=== PATIENT | male | born 1980 | race Caucasian/White ===

== ENCOUNTER 2025-09-09 09:15 | Observation (INO) | payer BC, SELFPAY ==
--- OUTSIDE RECORDS SUMMARY | 2025-09-08 11:20 | XMS_ITS | Encounter Summary ---
Author Organization [facility] Healthcare Address [address] [place] [id number] Care Team Providers Care Manager Lsw Name Role Phone No, Physician Primary Care Provider [phone] Encounter Details Date Type Department Care Team (Latest Contact Info) Description 09/08/2025 11:20 AM WINDOW MACHINE OPERATOR - 09/08/2025 11:59 PM WINDOW MACHINE OPERATOR Hospital Encounter [facility] [address] [place] [id number] Calculus of kidney Discharge Disposition: Discharge to home or self care Social History Tobacco Use Types Packs/Day Years Used Date Smoking Tobacco: Never Assessed Sex and Gender Information Value Date Recorded Sex Assigned at Not on file Legal Sex Male 12:37 PM WINDOW MACHINE OPERATOR Gender Identity Not on file Sexual Orientation Not on file documented as of this encounter Discharge Disposition Disposition Code Departure Means Destination Discharge to home or self care documented in this encounter Plan of Treatment Pending Results Name Type Priority Associated Diagnoses Date /Time XR Kub Imaging Schedule Routine , Read Routine (OP Routine) Calculus of kidney 09/08/2025 11:34 AM WINDOW MACHINE OPERATOR Scheduled Orders Name Type Priority Associated Diagnoses Orde r Schedule XR Kub Imaging Schedule Routine , Read Routine (OP Routine) Calculus of kidney Once for 1 Occurrences starting 09/08/2025 until 09/08/2025 documented as of this encounter Visit Diagnoses Diagnosis Calculus of kidney documented in this encounter Care Teams Manager Lsw Relationship Specialty Start Date End Date No, Physician PCP - General 11/14/24 documented as of this encounter
--- OUTSIDE RECORDS SUMMARY | 2025-09-08 11:20 | XMS_ITS | Encounter Summary ---
Author Organization [facility] Healthcare Address [address] [place] [address] Care Team Providers Care Ripening Room Attendant Name Role Phone No, Physician Primary Care Provider [phone] Encounter Details Date Type Department Care Team (Latest Contact Info) Description 09/08/2025 11:20 AM REPTILE KEEPER - 09/08/2025 11:59 PM REPTILE KEEPER Hospital Encounter [facility] [address] [place] [address] Calculus of kidney Discharge Disposition: Discharge to home or self care Social History Tobacco Use Types Packs/Day Years Used Date Smoking Tobacco: Never Assessed Sex and Gender Information Value Date Recorded Sex Assigned at Not on file Legal Sex Male 12:37 PM REPTILE KEEPER Gender Identity Not on file Sexual Orientation Not on file documented as of this encounter Discharge Disposition Disposition Code Departure Means Destination Discharge to home or self care documented in this encounter Plan of Treatment Pending Results Name Type Priority Associated Diagnoses Date /Time XR Kub Imaging Schedule Routine , Read Routine (OP Routine) Calculus of kidney 09/08/2025 11:34 AM REPTILE KEEPER Scheduled Orders Name Type Priority Associated Diagnoses Orde r Schedule XR Kub Imaging Schedule Routine , Read Routine (OP Routine) Calculus of kidney Once for 1 Occurrences starting 09/08/2025 until 09/08/2025 documented as of this encounter Visit Diagnoses Diagnosis Calculus of kidney documented in this encounter Care Teams Ripening Room Attendant Relationship Specialty Start Date End Date No, Physician PCP - General 11/14/24 documented as of this encounter
[2025-09-09] VITALS (18 sets, daily range): BP systolic 104–149; BP diastolic 43–90; PULSE 52–72; RESP 12–20; TEMP 36.5–37.4; O2SAT 96–100; BMI 27.1
--- NOTE | ~2025-09-09 | XR_ITS ---
EXAMINATION: XR retrograde pyelo w/stent RT DATE: 09/09/2025 16:26 INDICATION: Right ureteral stone TECHNIQUE: 5 fluoroscopic images of the abdomen and pelvis were obtained procedure performed by Dr. Alvarado. Radiologist was not present for the imaging or procedure. The amount of fluoroscopy time used during this procedure was 1.2 minutes. The dose area product was 0.930 mGym^2. COMPARISON: CT dated 09/09/2025 FINDINGS: Images demonstrate retrograde cannulation of the right ureter with contrast injection opacifying the mildly dilated right renal collecting system. Subsequent images demonstrate placement of a right internal ureteral stent with loops formed in the bladder and right renal pelvis. The stone previously seen in the distal right ureter is not visualized and may have been extracted. IMPRESSION: 1. Fluoroscopy utilized during placement of a right intrarenal stent which is in expected position. Correlate with procedure note for further detail. Reviewed, dictated and finalized at location A. E GRINDER IMPRESSION: 1. Fluoroscopy utilized during placement of a right intrarenal stent which is i n expected position. Correlate with procedure note for further detail.
--- NOTE | ~2025-09-09 | CT_ITS ---
EXAM/PROCEDURE: CT abdomen pelvis wo con HISTORY: recent kidney stone diagnosis, R back pain COMPARISON: None available. TECHNIQUE: Stone protocol CT FINDINGS: Moderately severe right-sided hydroureteronephrosis present with 4.5 mm stone in the expected location of the distal right ureter just above the UVJ, image 164 series 3. No other kidney stones or left ureteral stones. 2 mm stone present overlying the anterior bladder wall image 165 series 3, and image 79 of the sagittal series may represent a tiny bladder stone. Tiny urachal remnant also present. Small amount of free fluid. The bowel gas pattern is nonobstructive with no free air or pneumatosis. Moderate to large amount of stool extends to the cecum. No grossly inflamed appendix seen. No AAA. No gross CT evidence of acute cholecystitis or pancreatitis. Para graft lung bases clear. Heart size normal. The bones appear intact. No bulky mesenteric or retroperitoneal lymphadenopathy or masses. Mildly enlarged prostate. IMPRESSION: Directed noncontrast exam demonstrating moderately severe right- sided hydroureteronephrosis with probable 4.5 mm distal right ureteral stone. Small urachal remnant, and possible tiny anterior bladder stone also noted as detailed above. Reviewed, dictated and finalized at location A. H HEAT TREAT OPERATOR IMPRESSION: Directed noncontrast exam demonstrating moderately severe right-marco antonio ed hydroureteronephrosis with probable 4.5 mm distal right ureteral stone. Smal l urachal remnant, and possible tiny anterior bladder stone also noted as detai led above.
--- OUTSIDE RECORDS SUMMARY | 2025-09-09 10:10 | XMS_ITS | Clinical Summary ---
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 Encounter for routine adult health examination without abnormal findings 04/03/2023 Assessment & Plan (04/03/2024 10:26 AM CDT): Presenting for physical Feeling at baseline overall No acute concerns on exam Encouraged healthy lifestyle Immunizations discussed and recommended Screening tests reviewed/ordered Assessment & Plan (04/03/2023 9:58 AM CDT): New patient Presenting for physical Feeling at baseline overall No acute concerns on exam Encouraged healthy lifestyle Immunizations updated Screening tests reviewed/ordered Resolved Problems Problem Noted Date Diagnosed Date Resolved Date Acute neck pain 12/13/2023 04/03/2024 Assessment & Plan (12/13/2023 4:28 PM CDT): Without traumatic incident, suspect due to muscle strain; 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 Good ROM over video; needs physical visit for exam if persisting Recommend avoid strenuous activity, regular stretching Continue OTCs, will prescribe muscle relaxer to use as needed Severe acute respiratory syn drome coronavirus 2 (SARS-CoV-2) test result unknown 04/03/202304/03 Myalgia 04/03/2023 04/03/2024 Assessment & Plan (04/03/2023 10:00 AM CDT): Occasional flareups in his hands and muscle groups after working out, sometimes requiring NSAIDs -Could be attributed to age-related changes/chronic overuse -Recommend regular stretching at this time; ergonomic devices -Additional work-up if persisting/worsening Encounters Date Type Department Care Team Description 08/25/2025 External Device Data ST[facility] ABSTRACTION Provider, Abstract 07/28/2025 External Device Data STL ABSTRACTION Provider, Abstract 07/22/2025 External Device Data ST[facility] ABSTRACTION Provider, Abstract 07/21/2025 External Device Data ST[facility] ABSTRACTION Provider, Abstract 07/14/2025 External Device Data ST[facility] ABSTRACTION Provider, Abstract from Last 3 Months Immunizations Immunization Administration Dates Next Due ([id number])(ALL AGES) VACCINI A (SMALLPOX) VACCINE, PERCUTANEOUS 04/13/2009 (ADACEL/BOOSTRIX)(10 YR UP) TDAP VACCINE, 0.5ML, IM 04/03/2023 (BIOTHRAX)(18-65 YRS) ANTHRA X VACCINE, PRE-EXPOSURE PROPHYLAXIS, POST EXPOSURE PROPHYLAXIS, 0.5 ML IM 06/04/2009,04/13/2009 (IPOL)(6 WKS AND UP) POLIOVI LEONEL VACCINE, INACTIVATED (IPV), 3 DOSE, SUBCUT OR IM 03/22/2007 (MENACTRA)(9 MO-55 YR) MENIN GOCOCCAL POLYSACCHARIDE A, C, Y AND W-135 DIPTHERIA TOXOID CONJUGATE VACCINE, (PF), 0.5ML, IM 03/22/2007 (TDVAX)(7 YRS UP) TETANUS AN D DIPHTHERIA TOXOIDS, ADSORBED (2 LF OF TETANUS TOXOID AND 2 LF OF DIPHTHERIA TOXOID), 0.5ML (PF), IM 03/22/2007 (TWINRIX)(18 YRS UP) HEPATIT IS A AND HEPATITIS B VACCINE ADULT, 1 ML, IM 11/14/2007,04/27/2007,03/27/2007 (TYPHIM )(2 YRS UP) TYPHOI D CAPSULAR POLYSACCHARIDE VACCINE, 0.5 ML, IM 04/13/2009 Influenza A (H1N1) Vaccine IM 08/03/2009 Influenza Vaccine Nasal 07/22/2010,07/24/2008, Influenza Vaccine Quad Split 3+ Yrs Im 6 Influenza Virus Vaccine, Spl it Virus (Incl. Purified Surface antigen)-retired CODE 06/03/2009 Family History Medical History Relation Name Comments Thyroid Disease Father Diabetes Mother Heart Failure Mother Stroke Mother Relation Name Status Comments Father Mother Social History Tobacco Use Types Packs/Day Years Used Date Smoking Tobacco: Never Passive Smoke Exposure: Never Tobacco Cessation:Counseling Given: No Alcohol Use Standard Drinks/Week Comments Yes 0 (1 standard drink = 0.6 oz pur e alcohol) socially Sex and Gender Information Value Date Recorded Sex Assigned at Not on file Legal Sex Male 5:19 PM HAIR DRYER Gender Identity Not on file Sexual Orientation Not on file Last Filed Vital Signs Vital Sign Reading Time Taken Comments Blood Pressure 106/78 04/03/2024 9:52 AM CDT Pulse 47 04/03/2024 9:52 AM CDT Temperature 36.7 C (98 F) 01/30/2018 9:07 AM CDT Respiratory Rate 16 04/03/2024 9:52 AM CDT Oxygen Saturation 99% 04/03/2024 9:52 AM CDT Inhaled Oxygen Concentration - - Weight 83 kg (183 lb) 04/03/2024 9:52 AM CDT Height 177.8 cm (5' 10) 04/03/2024 9:52 AM CDT Body Mass Index 26.26 04/03/2024 9:52 AM CDT Plan of Treatment Health Maintenance Due Date Last Done Comments INFLUENZA VACCINE (#1) 2025 6, 07/22/2010, 07/24/2008, Additional history exists DTAP/TDAP/TD VACCINES (2 - T d or Tdap) 04/03/2033 04/03/2023, 03/22/2007 HEPATITIS B VACCINES Completed 11/14/2007, 04/27/2007, 03/27/2007 HPV VACCINES (No Doses Required) Completed Insurance [facility] [employer] ACCESS CHOICE Care Teams Pigment Making Supervisor Relationship Specialty Start Date End Date Alonzo Everett MD PCP - General Family Practice 04/03/23
--- OUTSIDE RECORDS SUMMARY | 2025-09-09 10:10 | XMS_ITS | Clinical Summary ---
Author Organization [facility] Address [address] [facility] [place] [address] Care Team Providers Care International Account Manager Name Role Phone Unavailable Primary Care Provider Unavailabl e Social History Tobacco Use Types Packs/Day Years Used Date Smoking Tobacco: Never Assessed Sex and Gender Information Value Date Recorded Sex Assigned at Not on file Legal Sex Male 12:20 PM EDT Gender Identity Not on file Sexual Orientation Not on file Plan of Treatment Not on file Medical Devices Not on file Insurance [facility]
--- OUTSIDE RECORDS SUMMARY | 2025-09-09 10:10 | XMS_ITS | Clinical Summary ---
Author Organization [facility] Address [address] [place] [address] Phone Care Team Providers Care Software Development Intern Name Role Phone Provider, None Primary Care Provider Unavailabl e Allergies No known active allergies Medications No known medications Active Problems No known active problems Social History Tobacco Use Types Packs/Day Years Used Date Smoking Tobacco: Never Smokeless Tobacco: Never Sex and Gender Information Value Date Recorded Sex Assigned at Not on file Legal Sex Male 10:05 AM CDT Gender Identity Not on file Sexual Orientation Not on file Last Filed Vital Signs Vital Sign Reading Time Taken Comments Blood Pressure 120/80 05/28/2021 11:40 AM CDT Pulse 62 05/28/2021 11:40 AM CDT Temperature 36.6 C (97.9 F) 05/28/2021 11:40 AM CDT Respiratory Rate 20 05/28/2021 11:40 AM CDT Oxygen Saturation 97% 05/28/2021 11:40 AM CDT Inhaled Oxygen Concentration - - Weight 81.6 kg (180 lb) 05/28/2021 11:40 AM CDT Height 177.8 cm (5' 10) 05/28/2021 11:40 AM CDT Body Mass Index 25.83 05/28/2021 11:40 AM CDT Plan of Treatment Health Maintenance Due Date Last Done Comments Hepatitis C Virus (HCV) Screening 1982 TdaP Immunization 1982 Varicella Immunization (1 of 2 - 13+ 2-dose series) 1995 Hepatitis B Immunization (1 of 3 - 19+ 3-dose series) 2001 Influenza Immunization (#1) 2025 06/22/2016 SARS-COV-2 Immunization (4 - 2025-26 season) 2025 09/12/2021, 12/13/2020, 11/10/2020 Respiratory Syncytial Virus (RSV) Immunization (Adult) (1 - 1-dose 75+ series) 2057 Human Papillomavirus (HPV) Immunization (No Doses Required) Completed Meningococcal Immunization (ACWY) Aged Out No longer eligible b ased on patient's age to complete this topic Pneumococcal Immunization Combined Aged Out No longer eligible b ased on patient's age to complete this topic Rotavirus Immunization Aged Out No lo nger eligible based on patient's age to complete this topic Insurance [facility] Care Teams Software Development Intern Relationship Specialty Start Date End Date Provider, None DIPAK PCP - General 05/28/21
--- OUTSIDE RECORDS SUMMARY | 2025-09-09 10:10 | XMS_ITS | Clinical Summary ---
Author Organization [facility] Address [address] [place] [address] Care Team Providers Care Utility Appraiser Name Role Phone No, Physician Primary Care Provider [phone] Allergies No known active allergies Medications No known medications Active Problems No known active problems Encounters Date Type Department Care Team Description 09/08/2025 11:20 AM TAX CONSULTANT - 09/08/2025 11:59 PM TAX CONSULTANT Hospital Encounter [facility] [address] [place] [address] Calculus of kidney Discharge Disposition: Discharge to home or self care from Last 3 Months Social History Tobacco Use Types Packs/Day Years Used Date Smoking Tobacco: Never Assessed Sex and Gender Information Value Date Recorded Sex Assigned at Not on file Legal Sex Male 12:37 PM TAX CONSULTANT Gender Identity Not on file Sexual Orientation Not on file Last Filed Vital Signs Vital Sign Reading Time Taken Comments Blood Pressure 116/72 11/21/2024 9:51 AM TAX CONSULTANT Pulse 53 11/21/2024 9:51 AM TAX CONSULTANT Temperature - - Respiratory Rate - - Oxygen Saturation - - Inhaled Oxygen Concentration - - Weight 83.9 kg (185 lb) 11/21/2024 9:51 AM TAX CONSULTANT Height 179.1 cm (5' 10.5) 11/21/2024 9:51 AM CS T Body Mass Index 26.17 11/21/2024 9:51 AM TAX CONSULTANT Plan of Treatment Health Maintenance Due Date Last Done Comments Depression Screening 1982 Hepatitis C Screening 1982 Varicella Vaccines (1 of 2 - 13+ 2-dose series) 1995 Regular Well Visit/Exam 18-64 2000 HPV Vaccines (1 - 3-dose SCDM series) 2009 Influenza Vaccine (#1) 2025 2, 09/12/2021, 06/22/2016, Additional history exists DTaP/Tdap/Td Vaccine (7 - Td or Tdap) 04/03/2033 04/03/2023, 03/22/2007, 03/19/1997, Additional history exists Hepatitis B Screening Completed 11/14/2007 , 04/27/2007, 03/27/2007 Pneumococcal vaccine <65 Aged Out No longer eligible based on patient's age to complete this topic Insurance [employer] [facility] Care Teams Utility Appraiser Relationship Specialty Start Date End Date No, Physician PCP - General 11/14/24
--- OUTSIDE RECORDS SUMMARY | 2025-09-09 10:10 | XMS_ITS | Clinical Summary ---
Author Organization [facility] Address [address] [place] [address] Care Team Providers Care Clip Loading Machine Feeder Name Role Phone Unknown, Unknown Primary Care Provider Unavailab le Source Comments [facility],non-owned Affiliates and Associated Physician Practices is amultiple site organization consisting of ambulatory clinics and hospital sitesin [place], [place], [place] and [place]. This disclosure is being madepursuant to the Care Everywhere program and may not contain all information available regarding this patient. Last updated 18.[email or web address] [facility] Allergies No known active allergies Medications * Be aware that medications may not be up to date on this document. Alwaysverify current medications with the patient. oxyCODONE, immediate release, (Roxicodone) 5 MG tabletIndicatio ns:Right flank pain,Nephrolith iasis Take 1 (one) tablet by mouth every 4 hours as needed 20 tablet 09/04/2025 Active tamsulosin (Flomax) 0.4 MG capsule Take 1 (one) capsule by mouth once daily At the same time every day after a meal. 20 capsule 09/05/2025 Active ondansetron, disintegrating, (Zofran ODT) 4 MG tablet Take 1 (one) tablet by mouth every 6 hours as needed for nausea/vomiti ng Allow tablet to dissolve on the tongue 20 tablet 09/04/2025 Active Active Problems Problem Noted Date Diagnosed Date Nephrolithiasis 09/03/2025 Right flank pain 09/03/2025 Encounters Date Type Department Care Team Description 09/03/2025 10:33 AM SPECIAL TAX AUDITOR - 09/04/2025 1:36 PM SPECIAL TAX AUDITOR Hospital Encounter [facility] SURG[facility]BARIATRIC [address] [place] [address] Rashida Tai MD Fatima, Noor E, MD Arukala, Venkat Dirish, MD Hospitalist Discharge Disposition: Home or Self Care 09/03/2025 Travel from Last 3 Months Social History Tobacco Use Types Packs/Day Years Used Date Smoking Tobacco: Never Assessed Hunger Vital Sign Answer Date Recorded Within the past 12 months, y ou worried that your food would run out before you got the money to buy more. Never true 09/04/20 25 Within the past 12 months, t he food you bought just didn't last and you didn't have money to get more. Never true 09/04/2025 Sex and Gender Information Value Date Recorded Sex Assigned at Not on file Legal Sex Male 10:25 AM SPECIAL TAX AUDITOR Gender Identity Not on file Sexual Orientation Not on file Last Filed Vital Signs Vital Sign Reading Time Taken Comments Blood Pressure 120/70 09/04/2025 7:24 AM SPECIAL TAX AUDITOR Pulse 58 09/04/2025 7:24 AM SPECIAL TAX AUDITOR Temperature 36.7 C (98 F) 09/04/2025 7:24 AM SPECIAL TAX AUDITOR Respiratory Rate 19 09/04/2025 7:24 AM SPECIAL TAX AUDITOR Oxygen Saturation 98% 09/04/2025 7:24 AM SPECIAL TAX AUDITOR Inhaled Oxygen Concentration - - Weight 84 kg (185 lb 1.6 oz) 09/04/2025 12:05 AM SPECIAL TAX AUDITOR Height 177.8 cm (5' 10) 09/03/2025 6:44 PM SPECIAL TAX AUDITOR Body Mass Index 26.56 09/03/2025 6:44 PM SPECIAL TAX AUDITOR Plan of Treatment Health Maintenance Due Date Last Done Comments LIPID TESTING 1982 HIV SCREENING 1997 HEPATITIS C SCREENING 04/10/2000 DTAP/TDAP/TD VACCINES (1 - Tdap) 2001 HEPATITIS B VACCINE (1 of 3 - 19+ 3-dose series) 2001 HPV VACCINE (1 - 3-dose SCDM series) 2009 DEPRESSION SCREENING 09/24/2024 COVID-19 VACCINE (1 - 2024-2 6 season) 2025 INFLUENZA VACCINE (#1) 2025 6, 06/03/2009 ZOSTER VACCINE (1 of 2) 2032 HIB VACCINE Aged Out No longer eligi ble based on patient's age to complete this topic MENINGOCOCCAL (Group B) VACCINE SHARED DECISION-MAKING Aged Out No longer eligible based on patient's age to complete this topic MENINGOCOCCAL GROUPS A/C/Y/W VACCINE Aged Out No longer eligible b ased on patient's age to complete this topic PNEUMOCOCCAL VACCINE Aged Out No long er eligible based on patient's age to complete this topic Procedures Procedure Name Priority Date/Time Associated Diagnosis Comments PHOSPHORUS BLOOD Routine 09/04/2025 3:15 AM SPECIAL TAX AUDITOR Right flank pain Nephrolithiasis MAGNESIUM BLOOD Routine 09/04/2025 3:15 AM SPECIAL TAX AUDITOR Right flank pain Nephrolithiasis COMPREHENSIVE METABOLIC PANEL Routine 09/04/2025 3:15 AM SPECIAL TAX AUDITOR Right flank pain Nephrolithiasis CBC W/O DIFFERENTIAL Routine 09/04/2025 3:15 AM SPECIAL TAX AUDITOR Right flank pain Nephrolithiasis URINALYSIS REFLEX MICROSCOPIC REFLEX CULTURE STAT 09/03/2025 11:[address] [address] RENAL STONE STAT 09/03/2025 11:11 AM SPECIAL TAX AUDITOR Right flank pain LIPASE BLOOD STAT 09/03/2025 11:08 AM SPECIAL TAX AUDITOR COMPREHENSIVE METABOLIC PANEL STAT 09/03/2025 11:08 AM SPECIAL TAX AUDITOR CBC W AUTO DIFFERENTIAL STAT 09/03/2025 11:08 AM SPECIAL TAX AUDITOR from Last 3 Months Results * (ABNORMAL) CBC W/O DIFFERENTIAL (09/04/2025 3:15 AM SPECIAL TAX AUDITOR) WBC 12.4(H) 4.0 - 10.7 x10E9/L 09/04/2025 3:24 AM SPECIAL TAX AUDITOR [facility] RBC Count 4.53 4.30 - 5.80 x10E12/L 09/04/2025 3:24 AM SPECIAL TAX AUDITOR [facility] Hemoglobin 13.5 13.3 - 17.5 g/dL 09/04/2025 3:24 AM SPECIAL TAX AUDITOR [facility] Hematocrit 39.3 38.7 - 51.1 % 09/04/2025 3:24 AM [facility] MCV 86.8 80.0 - 98.0 fL 09/04/2025 3:24 AM [facility] MCH 29.8 26.7 - 33.6 pg 09/04/2025 3:24 AM [facility] MCHC 34.4 31.7 - 36.3 g/dL 09/04/2025 3:24 AM [facility] RDW-CV 12.1 11.3 - 14.8 % 09/04/2025 3:24 AM [facility] Platelet Count 199 150 - 420 x10E9/L 09/04/2025 3:24 AM [facility] MPV 10.4 7.8 - 11.4 fL 09/04/2025 3:24 AM [facility] Blood BLOOD SPECIMEN / Unknown Venipuncture / Unknown 09/04/2025 3:15 AM SPECIAL TAX AUDITOR 09/04/2025 3:21 AM [facility] us Raza Sosa MD LAB - HEMATOLOGY ORDERABLES Fin al Result [facility] [address] [place] [address] * (ABNORMAL) COMPREHENSIVE METABOLIC PANEL (09/04/2025 3:15 AM SPECIAL TAX AUDITOR) Only the most recent of2 resultswithin the time period is included. Glucose 126(H) 70 - 99 mg/dL 09/04/2025 3:36 AM [facility] Sodium 136 136 - 145 mmol/L 09/04/2025 3:36 AM [facility] Potassium 3.9 3.5 - 5.1 mmol/L 09/04/2025 3:36 AM [facility] Chloride 103 98 - 107 mmol/L 09/04/2025 3:36 AM [facility] CO2 23 22 - 29 mmol/L 09/04/2025 3:36 AM [facility] Calcium 9.2 8.4 - 10.4 mg/dL 09/04/2025 3:36 AM [facility] Anion Gap 10 6 - 16 mmol/L 09/04/2025 3:36 AM [facility] BUN 24(H) 5.3 - 18.7 mg/dL 09/04/2025 3:36 AM SPECIAL TAX AUDITOR [facility] Creatinine 1.73(H) 0.60 - 1.30 mg/dL 09/04/2025 3:36 AM SPECIAL TAX AUDITOR [facility] Alkaline Phosphatase 52 40 - 150 U/L 09/04/2025 3:36 AM SPECIAL TAX AUDITOR [facility] ALT 24 6 - 57 U/L 09/04/2025 3:36 AM SPECIAL TAX AUDITOR [facility] AST 27 10 - 48 U/L 09/04/2025 3:36 AM [facility] Protein Total 6.2(L) 6.4 - 8.3 gm/dL 09/04/2025 3:36 AM [facility] Albumin 3.9 3.1 - 4.5 gm/dL 09/04/2025 3:36 AM [facility] Bilirubin Total 0.8 0.2 - 1.2 mg/dL 09/04/2025 3:36 AM [facility] eGFR by CKD-EPI 50(L) >=90 mL/min/1.7 3 m2 09/04/2025 3:36 AM [facility] Comment:Estimated Glomerular Filtration Rate (eGFR) calculated using the CKD-EPI Creatinine Equation (2020), per the National Kidney Foundation and [place] [employer]ph[employer] recommendations. Blood BLOOD SPECIMEN / Unknown Venipuncture / Unknown 09/04/2025 3:15 AM SPECIAL TAX AUDITOR 09/04/2025 3:21 AM [facility] Raza Sosa MD LAB - CHEMISTRY ORDERABLES Susan l Result [facility] [address] [place] [address] * (ABNORMAL) PHOSPHORUS BLOOD (09/04/2025 3:15 AM SPECIAL TAX AUDITOR) Phosphorus 4.9(H) 2.5 - 4.5 mg/dL 09/04/2025 3:36 AM [facility] Blood BLOOD SPECIMEN / Unknown Venipuncture / Unknown 09/04/2025 3:15 AM SPECIAL TAX AUDITOR 09/04/2025 3:21 AM SPECIAL TAX AUDITOR us Raza Sosa MD LAB - CHEMISTRY ORDERABLES Susan l Result Performing Organization Address City/[facility]/ZIP Co de Phone Number [facility] [id number] [place] [phone] * MAGNESIUM BLOOD (09/04/2025 3:15 AM SPECIAL TAX AUDITOR) Magnesium 2.0 1.6 - 2.6 mg/dL 09/04/2025 3:36 AM SPECIAL TAX AUDITOR [facility] Blood BLOOD SPECIMEN / Unknown Venipuncture / Unknown 09/04/2025 3:15 AM SPECIAL TAX AUDITOR 09/04/2025 3:21 AM SPECIAL TAX AUDITOR us Raza Sosa MD LAB - CHEMISTRY ORDERABLES Susan l Result Performing Organization Address [facility] Co de Phone Number [facility] [address] [place] [phone] * (ABNORMAL) URINALYSIS REFLEX MICROSCOPIC REFLEX CULTURE (09/03/2025 11:54 AM SPECIAL TAX AUDITOR) Color UA Yellow Yellow, Straw 09/03/2025 12:21 PM SPECIAL TAX AUDITOR [facility] Clarity UA Clear Clear 09/03/2025 12:21 PM SPECIAL TAX AUDITOR [facility] Glucose UA Normal Normal 09/03/2025 12:21 PM SPECIAL TAX AUDITOR [facility] Bilirubin UA Negative Negative 09/03/2025 12:21 PM SPECIAL TAX AUDITOR [facility] Ketone UA Trace(A) Negative 09/03/2025 12:21 PM SPECIAL TAX AUDITOR [facility] Specific [place] UA 1.028 1.005 - 1.030 09/03/2025 12:21 PM SPECIAL TAX AUDITOR [facility] Blood UA 3+(A) Negative 09/03/2025 12:21 PM SPECIAL TAX AUDITOR [facility] pH UA 7.0 5.0 - 8.0 09/03/2025 12:21 PM SPECIAL TAX AUDITOR [facility] Protein UA Trace(A) Negative 09/03/2025 12:21 PM SPECIAL TAX AUDITOR [facility] Urobilinogen UA Normal Normal mg/dL 09/03/2025 12:21 PM SPECIAL TAX AUDITOR [facility] Nitrite UA Negative Negative 09/03/2025 12:21 PM SPECIAL TAX AUDITOR [facility] Leukocyte Esterase UA Negative Negative 09/03/2025 12:21 PM SPECIAL TAX AUDITOR [facility] RBC UA 21-50(A) 0 - 5 # /hpf 09/03/2025 12:21 PM SPECIAL TAX AUDITOR [facility] WBC UA None Seen 0 - 5 # /hpf 09/03/2025 12:21 PM SPECIAL TAX AUDITOR [facility] Bacteria UA None Seen None Seen 09/03/2025 12:21 PM SPECIAL TAX AUDITOR [facility] Squamous Epithelial Cells 0-2 0 - 5 /hpf 09/03/2025 12:21 PM SPECIAL TAX AUDITOR [facility] Mucus UA 1+ /LPF 09/03/2025 12:21 PM SPECIAL TAX AUDITOR [facility] Reflex Status Culture not indicated 09/03/2025 12:21 PM SPECIAL TAX AUDITOR [facility] Urine URINE SPECIMEN OBTAINED BY CLEAN CATCH PROCEDURE / Unknown Collection / Unknown 09/03/2025 11:54 AM SPECIAL TAX AUDITOR 09/03/2025 12:01 PM SPECIAL TAX AUDITOR Rashida Murry PA-C LAB - URINALYSIS ORDERABLES F inal Result [facility] [address] [place] [address] * CT RENAL STONE (09/03/2025 11:11 AM SPECIAL TAX AUDITOR) Anatomical Region Laterality Modality Abdomen Computed Tomogra phy 09/03/2025 11:2 0 AM SPECIAL TAX AUDITOR Impressions 09/03/2025 11:27 AM SPECIAL TAX AUDITOR IMPRESSION: Obstructing 4 mm proximal right ureter calculus with moderate right hydronephrosis. > Interpreting Provider: Deshaun Guzman MD on 09/03/2025 11:27 AM Narrative 09/03/2025 11:27 AM SPECIAL TAX AUDITOR PROCEDURE: CT RENAL STONE DATE/TIME OF EXAM: 09/03/2025 11:12 AM CLINICAL INFORMATION: None relevant/not provided if blank. Indication: R10.A1: Right flank pain Additional History: Nausea COMPARISON: None. TECHNIQUE: CT of the abdomen and pelvis was performed without oral or intravenous contrast utilizing the renal stone protocol. Lack of oral and intravenous contrast precludes detailed evaluation of the solid organs and enteric system. CT dose reduction technique was used, including Automated Exposure Control. FINDINGS: Lung bases are clear. Unremarkable liver, gallbladder, pancreas, spleen, and adrenal glands. There is a 4 mm calculus within the proximal right ureter at the level of the L3 vertebral body. There is moderate right hydronephrosis. Unremarkable left kidney. Small calcification likely within the anterior wall the bladder. Mildly enlarged prostate. Unremarkable bowel. No findings of acute appendicitis. No pneumoperitoneum or ascites. No abdominal aortic aneurysm. No bulky lymphadenopathy. No acute osseous finding. Procedure Note Deshaun Guzman MD - 09/03/2025 PROCEDURE: CT RENAL STONE DATE/TIME OF EXAM: 09/03/2025 11:12 AM CLINICAL INFORMATION: None relevant/not provided if blank. Indication: R10.A1: Right flank pain Additional History: Nausea COMPARISON: None. TECHNIQUE: CT of the abdomen and pelvis was performed without oral or intravenous contrast utilizing the renal stone protocol. Lack of oral andintravenous contrast precludes detailed evaluation of the solid organs and enteric system. CT dose reduction technique was used, including Automated ExposureControl. FINDINGS: Lung bases are clear. Unremarkable liver, gallbladder, pancreas, spleen, and adrenal glands. There is a 4 mm calculus within the proximal right ureter at the levelof the L3 vertebral body. There is moderate right hydronephrosis.Unremarkable left kidney. Small calcification likely within the anterior wall the bladder. Mildly enlarged prostate. Unremarkable bowel. No findings of acute appendicitis. Nopneumoperitoneum or ascites. No abdominal aortic aneurysm. No bulky lymphadenopathy. No acute osseous finding. IMPRESSION: Obstructing 4 mm proximal right ureter calculus with moderate right hydronephrosis. > Interpreting Provider: Deshaun Guzman MD on 09/03/2025 11:27 AM Rashida [facility] PA-C CT ORDERABLES Final Result * (ABNORMAL) CBC W AUTO DIFFERENTIAL (09/03/2025 11:08 AM SPECIAL TAX AUDITOR) WBC 10.7 4.0 - 10.7 x10E9/L 09/03/2025 11:35 AM SPECIAL TAX AUDITOR [facility] RBC Count 5.07 4.30 - 5.80 x10E12/L 09/03/2025 11:35 AM SPECIAL TAX AUDITOR [facility] Hemoglobin 15.0 13.3 - 17.5 g/dL 09/03/2025 11:35 AM SPECIAL TAX AUDITOR [facility] Hematocrit 45.2 38.7 - 51.1 % 09/03/2025 11:35 AM SPECIAL TAX AUDITOR [facility] MCV 89.2 80.0 - 98.0 fL 09/03/2025 11:35 AM [facility] MCH 29.6 26.7 - 33.6 pg 09/03/2025 11:35 AM [facility] MCHC 33.2 31.7 - 36.3 g/dL 09/03/2025 11:35 AM [facility] RDW-CV 12.4 11.3 - 14.8 % 09/03/2025 11:35 AM [facility] Platelet Count 259 150 - 420 x10E9/L 09/03/2025 11:35 AM [facility] MPV 10.9 7.8 - 11.4 fL 09/03/2025 11:35 AM [facility] Neutrophil % 71.6 41.0 - 74.0 % 09/03/2025 11:35 AM [facility] Lymphocyte % 19.6 17.0 - 47.0 % 09/03/2025 11:35 AM SPECIAL TAX AUDITOR [facility] Monocyte % 6.3 3.0 - 11.0 % 09/03/2025 11:35 AM SPECIAL TAX AUDITOR [facility] Eosinophil % 1.3 0.0 - 7.0 % 09/03/2025 11:35 AM [facility] Basophil % 0.6 0.0 - 1.6 % 09/03/2025 11:35 AM [facility] Immature Granulocytes % 0.6 0.0 - 1.0 % 09/03/2025 11:35 AM [facility] Neutrophil Absolute 7.66(H) 1.60 - 7.50 x10E9/L 09/03/2025 11:35 AM SPECIAL TAX AUDITOR [facility] Lymphocyte Absolute 2.09 1.00 - 4.40 x10E9/L 09/03/2025 11:35 AM [facility] Monocyte Absolute 0.67 0.15 - 1.00 x10E9/L 09/03/2025 11:35 AM [facility] Eosinophil Absolute 0.14 0.00 - 0.60 x10E9/L 09/03/2025 11:35 AM [facility] Basophil Absolute 0.06 0.00 - 0.13 x10E9/L 09/03/2025 11:35 AM SPECIAL TAX AUDITOR [facility] Blood BLOOD SPECIMEN / Unknown Venipuncture / Unknown 09/03/2025 11:08 AM SPECIAL TAX AUDITOR 09/03/2025 11:26 AM SPECIAL TAX AUDITOR Rashida Groos PA-C LAB - HEMATOLOGY ORDERABLES F inal Result Performing Organization Address [facility] Co de Phone Number [facility] [address] [place] [address] * LIPASE BLOOD (09/03/2025 11:08 AM SPECIAL TAX AUDITOR) Lipase 15 <60 U/L 09/03/2025 11:43 AM SPECIAL TAX AUDITOR [facility] Blood BLOOD SPECIMEN / Unknown Venipuncture / Unknown 09/03/2025 11:08 AM SPECIAL TAX AUDITOR 09/03/2025 11:26 AM SPECIAL TAX AUDITOR Rashida Groos PA-C LAB - CHEMISTRY ORDERABLES Fi nal Result Performing Organization Address [facility] de Phone Number [facility] [address] [place] [address] from Last 3 Months Insurance [facility] Advance Directives * Full Code (Latest Code Status on File) Date Activated Date Inactivated Comments 09/03/2025 5:43 PM 09/04/2025 2:36 PM Care Teams Clip Loading Machine Feeder Relationship Specialty Start Date End Date Unknown, Unknown PCP - General 09/03/25
[2025-09-09 10:14] LABS: Hematocrit 40.7 % (42.0-52.0); Hemoglobin 13.2 g/dL (14.0-18.0); Immature Granulocyte Percent A 0.5 % (0-0.5); Lymphocytes Absolute Auto 1.63 K/mm3 (0.9-3.2); Mean Corpuscular HGB Conc 32.4 g/dl (32-36); Mean Corpuscular Hemoglobin 30.1 pg (26-34); Mean Corpuscular Volume 92.9 fl (80-100); Nucleated Red Blood Cells Absolute Auto 0.000 K/mm3 (0.0-0.012); Nucleated Red Blood Cells Perc 0.0 % (0.0-0.2); Platelet Count Result 180 k/mm3 (150-375); Red Blood Count 4.38 M/mm3 (4.6-6.20); White Blood Count 9.9 K/mm3 (4.5-10.0)
[2025-09-09 10:24] LABS: Add Urine Microscopic? YES; Appearance Urine Clear (Clear); Glucose Urine UA Negative (Negative); Leukocyte Esterase Ur Negative LEU/UL (Negative); Nitrate Urine Negative (Negative); Non Pathogenic Casts 0-2; Specific Grav Ur 1.019 (1.001-1.035)
--- NOTE | 2025-09-09 10:27 | ED_ITS ---
HPI - Back Pain/Injury General Chief Complaint: Back Pain/Injury Stated Complaint: R FLANK/ABD PAIN +KIDNEY STONE Time Seen by Provider: 09/09/25 09:58 History of Present Illness HPI Narrative: Patient is a 45-year-old male who presents to the ER with right flank pain. He reports he started experiencing pain last week and went in to [facility] on , 6 days ago. Patient reports they did a CT scan and he is diagnosed with a 4 mm kidney stone. He reports he was admitted to the hospital and discharged on Sunday. Patient reports he was seen by urologist who told him he would pass the stone, but put him on Flomax. He reports the pain continues to be significant. Patient reports he went to an outpatient urologist yesterday who did a KUB, but they have not received results from that yet. He reports he took Tylenol this morning around 6:30 a.m.. Patient reports he has not taken his oxycodone as it makes him sick. He reports he has been straining his urine but has not passed the stone. At time of examination patient endorses his pain is a 4/10. He denies any other medical history relevant to this ER visit. Related Data Allergies Allergy/AdvReac Type Severity Reaction Status Date / Time No Known Allergies Allergy Verified 09/09/25 09:16 Review of Systems 2 Review of Systems: All systems reviewed & are unremarkable except as noted in HPI and below PMFSH Past Medical History Medical History Kidney stones Exam 2 Narrative: GENERAL: Well appearing, well-nourished, non-toxic, in no acute distress. HEAD: Normocephalic, atraumatic. NECK: Supple. No adenopathy, no masses. RESPIRATORY: Airway patent, respirations nonlabored. Clear to auscultation bilaterally, no rales, rhonchi, wheezing. CARDIOVASCULAR: Regular rate and rhythm without murmurs, rubs, or gallops. Peripheral pulses 2+ and equal bilaterally. ABDOMINAL: Soft, nontender, nondistended, no hepatosplenomegaly. Normoactive BS. MUSCULOSKELETAL: Moves all extremities. Strength/ROM intact without gross deformities. SKIN: Warm, dry, normal color. No rashes. NEURO: A&O X3. Speech clear. Cranial nerves II-XII intact. No ataxic movements. PSYCHIATRIC: Appropriate mood and affect. Normal interaction. Course Vital Signs Vital signs: Vital Signs Temperature 36.6 C 09/09/25 09:25 Pulse Rate 58 L 09/09/25 09:25 Respiratory Rate 18 09/09/25 09:25 Blood Pressure 142/75 H 09/09/25 09:25 Pulse Oximetry 100 09/09/25 09:25 Oxygen Delivery Room Air 09/09/25 09:25 Temperature 36.6 C 09/09/25 09:25 Pulse Rate 52 L 09/09/25 10:12 Respiratory Rate 18 09/09/25 12:12 Blood Pressure 139/78 09/09/25 12:12 Pulse Oximetry 100 09/09/25 10:12 Oxygen Delivery Room Air 09/09/25 09:25 MDM MDM Narrative Medical decision making narrative: Patient is a 45-year-old male who presents to the ER with right flank pain. He reports he started experiencing pain last week and went in to [facility] on , 6 days ago. Patient reports they did a CT scan and he is diagnosed with a 4 mm kidney stone. He reports he was admitted to the hospital and discharged on Sunday. Patient reports he was seen by urologist who told him he would pass the stone, but put him on Flomax. He reports the pain continues to be significant. Patient reports he went to an outpatient urologist yesterday who did a KUB, but they have not received results from that yet. He reports he took Tylenol this morning around 6:30 a.m.. Patient reports he has not taken his oxycodone as it makes him sick. He reports he has been straining his urine but has not passed the stone. At time of examination patient endorses his pain is a 4/10. He denies any other medical history relevant to this ER visit. Labs Ordered: CBC, CMP, UA Imaging Ordered: CT abdomen pelvis Medications Ordered: 1 L normal saline IV bolus, morphine 4 mg IV, morphine 2 mg IV, Zofran 4 mg IV Results: Pt's CT scan indicates Moderately severe right-sided hydroureteronephrosis present with 4.5 mm stone in the expected location of the distal right ureter just above the UVJ, image 164 series 3. No other kidney stones or left ureteral stones. 2 mm stone present overlying the anterior bladder wall image 165 series 3, and image 79 of the sagittal series may represent a tiny bladder stone. Tiny urachal remnant also present. Small amount of free fluid. The bowel gas pattern is nonobstructive with no free air or pneumatosis. Moderate to large amount of stool extends to the cecum. No grossly inflamed appendix seen. No AAA. No gross CT evidence of acute cholecystitis or pancreatitis. Para graft lung bases clear. Heart size normal. The bones appear intact. No bulky mesenteric or retroperitoneal lymphadenopathy or masses. Mildly enlarged prostate. Diagnosis: Kidney stone Consults: Spoke [facility], Dr. Alvarado, who reports he will consult on pt. He can be admitted and will do the procedure tomorrow morning or late this evening. 1250- Spoke with hospitalist, HERMINIO Erwin, who was in agreement with plan for admission. Pt will be admitted to med/surg floor. MDM: Results of imaging and lab work shared with patient and his family. After discussion with Dr. Alvarado, pt was offered discharge home versus admission. Pt and his family are opting for admission to proceed forward with surgery. He was advised to remain NPO and make staff aware if he needs more pain medication. Patient and his family verbalized understanding and are in agreement with plan. Differential Diagnosis Differential Diagnosis: Pyelonephritis, kidney stone, urinary tract infection Lab Data [facility] Lab Attestation statement: I personally reviewed the patient's lab results. 09/09/25 10:09 09/09/25 10:59 Labs: Lab Results 09/09/25 09/09/25 09/09/25 Range/Units 10:09 10:10 10:59 WBC 9.9 (4.5-10.0) K/mm3 RBC 4.38 L (4.6-6.20) M/mm3 Hgb 13.2 L (14.0-18.0) g/dL Hct 40.7 L (42.0-52.0) % MCV 92.9 (80-100) fl MCH 30.1 (26-34) pg MCHC 32.4 (32-36) g/dl RDW 12.1 (11.5-14.5) % Plt Count 180 (150-375) k/mm3 MPV 11.0 H (7.4-10.4) fl Immature Gran % (Auto) 0.5 (0-0.5) % Neut % (Auto) 70.5 (45.5-73.1) % Lymph % (Auto) 16.5 L (18.3-44.2) % Bullock % (Auto) 10.3 H (2.6-8.5) % Eos % (Auto) 1.5 (0-4.4) % Baso % (Auto) 0.7 (0.2-1.2) % Lymph # (Auto) 1.63 (0.9-3.2) K/mm3 Bullock # (Auto) 1.0 H (0.1-0.6) K/mm3 Eos # (Auto) 0.2 (0-0.3) K/mm3 Baso # (Auto) 0.1 (0.0-0.1) K/mm3 Abs Immat Gran (auto) 0.05 H (0.00-0.031) K/mm3 Absolute Neuts (auto) 7.0 H (1.3-6.7) K/mm3 Absolute Nucleated RBC 0.000 (0.0-0.012) K/mm3 Nucleated RBC % 0.0 (0.0-0.2) % Sodium 140 (137-145) mmol/L Potassium 4.4 (3.4-5.0) mmol/L Chloride 105 (98-107) mmol/L Carbon Dioxide 28 (22-30) mmol/L Anion Gap 7 (4-12) mmol/L BUN 14 (9-20) mg/dL Creatinine 1.64 H (0.7-1.3) mg/dL Estim Creat Clear Calc 54 ml/min Estimated GFR 46 L (59 - ) Glucose 81 (65-110) mg/dL Calcium 8.7 (8.4-10.2) mg/dL Total Bilirubin 0.5 (0.2-1.3) mg/dL AST 29 (17-59) U/L ALT 47 (6-50) U/L Alkaline Phosphatase 76 (38-126) U/L Total Protein 6.7 (6.3-8.2) g/dL Albumin 3.9 (3.5-5.1) g/dL Urine Color Yellow (Yellow) Urine Appearance Clear (Clear) Urine pH 7.5 (5.0-9.0) Ur Specific Keiser 1.019 (1.001-1.035) Urine Protein Trace (Negative) mg/dL Urine Glucose (UA) Negative (Negative) mg/dL Urine Ketones Negative (Negative) mg/dL Ur Blood (Man) Negative (Negative) Urine Nitrate Negative (Negative) Urine Bilirubin Negative (Negative) Urine Urobilinogen 1.0 (<2.0) mg/dL Leukocyte Esterase Rfl Negative (Negative) JOSE/UL Urine RBC 0-2 (0-2) /hpf Urine WBC 0-5 (0-3) /hpf Ur Squamous Epith Cells None seen (Few) /hpf Urine Bacteria None seen /hpf Urine Casts 0-2 Imaging Data Attestation: I personally reviewed and interpreted this imaging study as follows: Radiologist's impression: ITS Impressions Abdomen/Pelvis CT 09/09/25 11:18 IMPRESSION: Directed noncontrast exam demonstrating moderately severe right- sided hydroureteronephrosis with probable 4.5 mm distal right ureteral stone. Small urachal remnant, and possible tiny anterior bladder stone also noted as detailed above. Discharge Plan Discharge Clinical Impression: Kidney calculi, Acute flank pain, Hydroureteronephrosis Patient Disposition: Still a Patient Condition: Stable Patient Language: Yi Follow-up/Referrals: PHYSICIAN,BRINELL TESTER [Primary Care Provider, Internal Medicine]
[2025-09-09] MEDS: SODIUM CHLORIDE 0.9% IV 1,000 ML 999 ML IV CONT (10:35)
[2025-09-09] MEDS: ONDANSETRON INJ 4 MG/2 ML VIAL IV PUSH (10:36)
[2025-09-09] MEDS: MORPHINE SULFATE (*CRX) 4 MG/ML INJ 2 MG IV PUSH (10:37)
--- OUTSIDE RECORDS SUMMARY | 2025-09-09 11:53 | XMS_ITS | Clinical Summary ---
Author Organization [facility] lin Address [address] [facility] [place] [address] Care Team Providers Care Healthcare Sales Representative Name Role Phone Unavailable Primary Care Provider Unavailabl e Social History Tobacco Use Types Packs/Day Years Used Date Smoking Tobacco: Never Assessed Sex and Gender Information Value Date Recorded Sex Assigned at Not on file Legal Sex Male 12:20 PM EDT Gender Identity Not on file Sexual Orientation Not on file Plan of Treatment Not on file Medical Devices Not on file Insurance [facility]
--- OUTSIDE RECORDS SUMMARY | 2025-09-09 11:53 | XMS_ITS | Clinical Summary ---
Author Organization [facility] Building [address] Address [address] [place] [address] Care Team Providers Care Equipment Operation Instructor Name Role Phone No, Physician Primary Care Provider [phone] Allergies No known active allergies Medications No known medications Active Problems No known active problems Encounters Date Type Department Care Team Description 09/08/2025 11:20 AM MANAGER MEDICAL DEVICE - 09/08/2025 11:59 PM MANAGER MEDICAL DEVICE Hospital Encounter [facility] [address] [place] [address] Calculus of kidney Discharge Disposition: Discharge to home or self care from Last 3 Months Social History Tobacco Use Types Packs/Day Years Used Date Smoking Tobacco: Never Assessed Sex and Gender Information Value Date Recorded Sex Assigned at Not on file Legal Sex Male 12:37 PM MANAGER MEDICAL DEVICE Gender Identity Not on file Sexual Orientation Not on file Last Filed Vital Signs Vital Sign Reading Time Taken Comments Blood Pressure 116/72 11/21/2024 9:51 AM MANAGER MEDICAL DEVICE Pulse 53 11/21/2024 9:51 AM MANAGER MEDICAL DEVICE Temperature - - Respiratory Rate - - Oxygen Saturation - - Inhaled Oxygen Concentration - - Weight 83.9 kg (185 lb) 11/21/2024 9:51 AM MANAGER MEDICAL DEVICE Height 179.1 cm (5' 10.5) 11/21/2024 9:51 AM CS T Body Mass Index 26.17 11/21/2024 9:51 AM MANAGER MEDICAL DEVICE Plan of Treatment Health Maintenance Due Date [...] patient's age to complete this topic Insurance [facility] Care Teams Equipment Operation Instructor Relationship Specialty Start Date End Date No, Physician PCP - General 11/14/24
--- OUTSIDE RECORDS SUMMARY | 2025-09-09 11:54 | XMS_ITS | Clinical Summary ---
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
--- OUTSIDE RECORDS SUMMARY | 2025-09-09 11:54 | XMS_ITS | Clinical Summary ---
Author Organization [facility] Address [address] [place] [address] Care Team Providers Care Drama Critic Name Role Phone Unknown, Unknown Primary Care Provider Unavailab le Source Comments [facility],non-owned Affiliates and Associated Physician Practices is amultiple site organization consisting of ambulatory clinics and hospital sitesin [place], [place], [place] and [place]. This disclosure is being madepursuant to the Care Everywhere program and may not contain all information available regarding this patient. Last updated 18.[employer] [facility] Allergies No known active allergies Medications * [...] Department Care Team Description 09/03/2025 10:33 AM CAPTAIN/AIRLINE PILOT - 09/04/2025 1:36 PM [facility]LINE PILOT Hospital Encounter [facility] 2S SURG/BARIATRIC [address] [place] [address] Rashida Tai MD Fatima, Noor E, MD [...] on file Legal Sex Male 10:25 AM CAPTAIN/AIRLINE PILOT Gender Identity Not on file Sexual Orientation Not on file Last Filed Vital Signs Vital Sign Reading Time Taken Comments Blood Pressure 120/70 09/04/2025 7:24 AM [facility]LINE [facility] Pulse 58 09/04/2025 7:24 AM [facility] Temperature 36.7 C (98 F) 09/04/2025 7:24 AM [facility] Respiratory Rate 19 09/04/2025 7:24 AM [facility]LINE [facility] Oxygen Saturation 98% 09/04/2025 7:24 AM [facility]LINE [facility]IL[facility] Inhaled Oxygen Concentration - - Weight 84 kg (185 lb 1.6 oz) 09/04/2025 12:05 AM [facility]LINE PIL[facility] Height 177.8 cm (5' 10) 09/03/2025 6:44 PM [facility]LINE [facility]IL[facility] Body Mass Index 26.56 09/03/2025 6:44 PM [facility]TAIN[facility]AIRLINE PILOT Plan of Treatment Health Maintenance Due Date [...] Comments PHOSPHORUS BLOOD Routine 09/04/2025 3:15 AM [facility]AIRLINE PIL[facility] Right flank pain Nephrolithiasis MAGNESIUM BLOOD Routine 09/04/2025 3:15 AM [facility] Right flank pain Nephrolithiasis COMPREHENSIVE METABOLIC PANEL Routine 09/04/2025 3:15 AM [facility] Right flank pain Nephrolithiasis CBC W/O DIFFERENTIAL Routine 09/04/2025 3:15 AM [facility] Right flank pain Nephrolithiasis URINALYSIS REFLEX MICROSCOPIC REFLEX CULTURE STAT 09/03/2025 11:54 AM CAPTAIN/AIRLINE PILOT CT RENAL STONE STAT 09/03/2025 11:11 AM [facility]LINE P[facility] Right flank pain LIPASE BLOOD STAT 09/03/2025 11:08 AM [facility] COMPREHENSIVE METABOLIC PANEL STAT 09/03/2025 11:08 AM [facility]LINE [facility] CBC W AUTO DIFFERENTIAL STAT 09/03/2025 11:08 AM [facility]AIRLINE PILOT from Last 3 Months Results * (ABNORMAL) CBC W/O DIFFERENTIAL (09/04/2025 3:15 AM CAPTAIN/AIRLINE PILOT) WBC 12.4(H) 4.0 - 10.7 x10E9/L 09/04/2025 3:24 AM [facility]LINE [facility] RBC Count 4.53 4.30 - 5.80 x10E12/L 09/04/2025 3:24 AM [facility]LINE [facility] Hemoglobin 13.5 13.3 - 17.5 g/dL 09/04/2025 3:24 AM [facility]LINE [facility] Hematocrit 39.3 38.7 - 51.1 % 09/04/2025 3:24 AM [facility] MCV 86.8 80.0 - 98.0 fL 09/04/2025 3:24 AM [facility] MCH 29.8 26.7 - 33.6 pg 09/04/2025 3:24 AM [facility] MCHC 34.4 31.7 - 36.3 g/dL 09/04/2025 3:24 AM [facility] RDW-CV 12.1 11.3 - 14.8 % 09/04/2025 3:24 AM [facility] Platelet Count 199 150 - 420 x10E9/L 09/04/2025 3:24 AM [facility] MPV 10.4 7.8 - 11.4 fL 09/04/2025 3:24 AM [facility] Blood BLOOD SPECIMEN / Unknown Venipuncture / Unknown 09/04/2025 3:15 AM [facility] 09/04/2025 3:21 AM [facility] us Rzaa Sosa MD LAB - HEMATOLOGY ORDERABLES Fin al Result [facility] [address] [place] [address] * (ABNORMAL) COMPREHENSIVE METABOLIC PANEL (09/04/2025 3:15 AM CAPTAIN/AIRLINE PILOT) Only the most recent of2 resultswithin the time period is included. Glucose 126(H) 70 - 99 mg/dL 09/04/2025 3:36 AM [facility] Sodium 136 136 - 145 mmol/L 09/04/2025 3:36 AM [facility] Potassium 3.9 3.5 - 5.1 mmol/L 09/04/2025 3:36 AM [facility] Chloride 103 98 - 107 mmol/L 09/04/2025 3:36 AM [facility] CO2 23 22 - 29 mmol/L 09/04/2025 3:36 AM [facility] Calcium 9.2 8.4 - 10.4 mg/dL 09/04/2025 3:36 AM [facility] Anion Gap 10 6 - 16 mmol/L 09/04/2025 3:36 AM [facility] BUN 24(H) 5.3 - 18.7 mg/dL 09/04/2025 3:36 AM [facility] Creatinine 1.73(H) 0.60 - 1.30 mg/dL 09/04/2025 3:36 AM [facility] Alkaline Phosphatase 52 40 - 150 U/L 09/04/2025 3:36 AM [facility]LINE [facility] ALT 24 6 - 57 U/L 09/04/2025 3:36 AM [facility] AST 27 10 - 48 U/L 09/04/2025 3:36 AM [facility] Protein Total 6.2(L) 6.4 - 8.3 gm/dL 09/04/2025 3:36 AM [facility] Albumin 3.9 3.1 - 4.5 gm/dL 09/04/2025 3:36 AM [facility] Bilirubin Total 0.8 0.2 - 1.2 mg/dL 09/04/2025 3:36 AM [facility] eGFR by CKD-EPI 50(L) >=90 mL/min/1.7 3 m2 09/04/2025 3:36 AM [facility] Comment:Estimated Glomerular Filtration Rate (eGFR) calculated using the CKD-EPI Creatinine Equation (2020), per the National Kidney Foundation and [place] [employer] Neph[employer] recommendations. Blood BLOOD SPECIMEN / Unknown Venipuncture / Unknown 09/04/2025 3:15 AM [facility]LINE PILOT 09/04/2025 3:21 AM [facility] Raza Sosa MD LAB - CHEMISTRY ORDERABLES Susan l Result [facility] [address] [place] [address] * (ABNORMAL) PHOSPHORUS BLOOD (09/04/2025 3:15 AM [facility]IL[facility]) Phosphorus 4.9(H) 2.5 - 4.5 mg/dL 09/04/2025 3:36 AM [facility] Blood BLOOD SPECIMEN / Unknown Venipuncture / Unknown 09/04/2025 3:15 AM [facility] 09/04/2025 3:21 AM [facility] us Raza Sosa MD LAB - CHEMISTRY ORDERABLES Susan l Result Performing Organization Address City/[facility]/ZIP Co de Phone Number [facility] [id number] [place] [phone] * MAGNESIUM BLOOD (09/04/2025 3:15 AM CAP[facility]AIRLINE PIL[facility]) Magnesium 2.0 1.6 - 2.6 mg/dL 09/04/2025 3:36 AM [facility] Blood BLOOD SPECIMEN / Unknown Venipuncture / Unknown 09/04/2025 3:15 AM [facility]LINE [facility] 09/04/2025 3:21 AM [facility] us Raza Sosa MD LAB - CHEMISTRY ORDERABLES Susan l Result Performing Organization Address [facility] Co de Phone Number [facility] [address] [place] [phone] * (ABNORMAL) URINALYSIS REFLEX MICROSCOPIC REFLEX CULTURE (09/03/2025 11:54 AM CAPTAIN[facility]AIRLINE PILOT) Color UA Yellow Yellow, Straw 09/03/2025 12:21 PM [facility] Clarity UA Clear Clear 09/03/2025 12:21 PM [facility] Glucose UA Normal Normal 09/03/2025 12:21 PM [facility] Bilirubin UA Negative Negative 09/03/2025 12:21 PM [facility] Ketone UA Trace(A) Negative 09/03/2025 12:21 PM [facility]LINE P[facility] Specific [place] UA 1.028 1.005 - 1.030 09/03/2025 12:21 PM [facility]LINE PILOT [facility] Blood UA 3+(A) Negative 09/03/2025 12:21 PM [facility] pH UA 7.0 5.0 - 8.0 09/03/2025 12:21 PM [facility]LINE P[facility] Protein UA Trace(A) Negative 09/03/2025 12:21 PM [facility]AIRLINE PIL[facility] Urobilinogen UA Normal Normal mg/dL 09/03/2025 12:21 PM [facility]LINE P[facility] Nitrite UA Negative Negative 09/03/2025 12:21 PM [facility]LINE P[facility] Leukocyte Esterase UA Negative Negative 09/03/2025 12:21 PM [facility]AIRLINE PIL[facility] RBC UA 21-50(A) 0 - 5 # /hpf 09/03/2025 12:21 PM [facility] WBC UA None Seen 0 - 5 # /hpf 09/03/2025 12:21 PM [facility] Bacteria UA None Seen None Seen 09/03/2025 12:21 PM [facility] Squamous Epithelial Cells 0-2 0 - 5 /hpf 09/03/2025 12:21 PM [facility] Mucus UA 1+ /LPF 09/03/2025 12:21 PM [facility] Reflex Status Culture not indicated 09/03/2025 12:21 PM [facility] Urine URINE SPECIMEN OBTAINED BY CLEAN CATCH PROCEDURE / Unknown Collection / Unknown 09/03/2025 11:54 AM [facility] 09/03/2025 12:01 PM [facility] Rashida Murry PA-C LAB - URINALYSIS ORDERABLES F inal Result [facility] [address] [place] [address] * CT RENAL STONE (09/03/2025 11:11 AM CAPTAIN[facility]AIRLINE PILOT) Anatomical Region Laterality Modality Abdomen Computed Tomogra phy 09/03/2025 11:2 0 AM [facility] Impressions 09/03/2025 11:27 AM [facility] IMPRESSION: Obstructing 4 mm proximal right ureter calculus with moderate right hydronephrosis. > Interpreting Provider: Deshaun Guzman MD on 09/03/2025 11:27 AM Narrative 09/03/2025 11:27 AM [facility] PROCEDURE: CT RENAL STONE DATE/TIME OF EXAM: [...] Guzman MD on 09/03/2025 11:27 AM Rashida [facility] PA-C CT ORDERABLES Final Result * (ABNORMAL) CBC W AUTO DIFFERENTIAL (09/03/2025 11:08 AM CAPTAIN/AIRLINE PILOT) WBC 10.7 4.0 - 10.7 x10E9/L 09/03/2025 11:35 AM [facility] RBC Count 5.07 4.30 - 5.80 x10E12/L 09/03/2025 11:35 AM [facility] Hemoglobin 15.0 13.3 - 17.5 g/dL 09/03/2025 11:35 AM [facility] Hematocrit 45.2 38.7 - 51.1 % 09/03/2025 11:35 AM [facility] MCV 89.2 80.0 - 98.0 fL 09/03/2025 11:35 AM [facility] MCH 29.6 26.7 - 33.6 pg 09/03/2025 11:35 AM [facility] MCHC 33.2 31.7 - 36.3 g/dL 09/03/2025 11:35 AM [facility] RDW-CV 12.4 11.3 - 14.8 % 09/03/2025 11:35 AM [facility] Platelet Count 259 150 - 420 x10E9/L 09/03/2025 11:35 AM [facility] MPV 10.9 7.8 - 11.4 fL 09/03/2025 11:35 AM [facility] Neutrophil % 71.6 41.0 - 74.0 % 09/03/2025 11:35 AM [facility] Lymphocyte % 19.6 17.0 - 47.0 % 09/03/2025 11:35 AM [facility] Monocyte % 6.3 3.0 - 11.0 % 09/03/2025 11:35 AM [facility] P[facility] Eosinophil % 1.3 0.0 - 7.0 % 09/03/2025 11:35 AM [facility] Basophil % 0.6 0.0 - 1.6 % 09/03/2025 11:35 AM [facility] Immature Granulocytes % 0.6 0.0 - 1.0 % 09/03/2025 11:35 AM [facility] Neutrophil Absolute 7.66(H) 1.60 - 7.50 x10E9/L 09/03/2025 11:35 AM [facility] Lymphocyte Absolute 2.09 1.00 - 4.40 x10E9/L 09/03/2025 11:35 AM [facility] Monocyte Absolute 0.67 0.15 - 1.00 x10E9/L 09/03/2025 11:35 AM [facility] Eosinophil Absolute 0.14 0.00 - 0.60 x10E9/L 09/03/2025 11:35 AM [facility] Basophil Absolute 0.06 0.00 - 0.13 x10E9/L 09/03/2025 11:35 AM [facility] Blood BLOOD SPECIMEN / Unknown Venipuncture / Unknown 09/03/2025 11:08 AM [facility] 09/03/2025 11:26 AM [facility] Rashida Groos PA-C LAB - HEMATOLOGY ORDERABLES F inal Result Performing Organization Address [facility] Co de Phone Number [facility] [address] [place] [address] * LIPASE BLOOD (09/03/2025 11:08 AM [facility]) Lipase 15 <60 U/L 09/03/2025 11:43 AM [facility] Blood BLOOD SPECIMEN / Unknown Venipuncture / Unknown 09/03/2025 11:08 AM [facility] 09/03/2025 11:26 AM [facility] Rashida Groos PA-C LAB - CHEMISTRY ORDERABLES Fi nal Result Performing Organization Address [facility] de Phone Number [facility] [address] [place] [address] from Last 3 Months Insurance [facility] Advance Directives * Full Code (Latest Code Status on File) Date Activated Date Inactivated Comments 09/03/2025 5:43 PM 09/04/2025 2:36 PM Care Teams Drama Critic Relationship Specialty Start Date End Date Unknown, Unknown PCP - General 09/03/25
--- OUTSIDE RECORDS SUMMARY | 2025-09-09 11:54 | XMS_ITS | Clinical Summary ---
Author Organization [facility] Address [address] [place] [address] Phone Care Team Providers Care Cloth Examiner Name Role Phone Provider, None Primary Care [...] patient's age to complete this topic Insurance [facility] Care Teams Cloth Examiner Relationship Specialty Start Date End Date Provider, None DIPAK PCP - General 05/28/21
[2025-09-09] MEDS: MORPHINE SULFATE (*CRX) 4 MG/ML INJ IV PUSH ×2 (12:07→14:22)
[2025-09-09 12:45] LABS: Alanine Aminotransferase 47 U/L (6-50); Albumin Level 3.9 g/dL (3.5-5.1); Alkaline Phosphatase 76 U/L (38-126); Anion Gap 7 mmol/L (4-12); Aspartate Amino Transferase 29 U/L (17-59); Bilirubin,Total 0.5 mg/dL (0.2-1.3); Blood Urea Nitrogen 14 mg/dL (9-20); Calcium 8.7 mg/dL (8.4-10.2); Carbon Dioxide 28 mmol/L (22-30); Chloride 105 mmol/L (98-107); Estimated CRCL calculation 54 ml/min; Estimated Glomerular Filt Rate 46; Glucose 81 mg/dL (65-110); Potassium 4.4 mmol/L (3.4-5.0); Sodium 140 mmol/L (137-145); Total Protein 6.7 g/dL (6.3-8.2)
[2025-09-09] MEDS: SODIUM CHLORIDE 0.9% IV 1,000 ML 125 ML IV CONT (13:38)
--- NOTE | 2025-09-09 13:46 | WPCEDHO ---
ED Hand Off Checklist All vitals saved: y IV Site documented: y All med administrations documented: y Triage Note Triage Note Pt amb to ED c/o R flank pain. 09/09/25 09:[address] scan done last week dx with kidney stone. States had temp of 100 last night, last dose of tylenol at 0600. Reports N/V, slight pain with urination. this RN agrees with triage assessment Allergies No Known Allergies Allergy (Verified 09/09/25 09:16) Active Medications including assessments/comments Sodium Chloride (Normal Saline Iv) 1,000 mls @ 125 mls/hr IV CONT .Q8H ADRIANA Last Admin: 09/09/25 13:38 Dose: 125 mls/hr Documented By: PAOLA Infusion/Titration Document 09/09/25 13:38 PAOLA (Rec: 09/09/25 13:39 PAOLA [id number]) Intake IV Site Peripheral Access Right Forearm Container Volume 1,000 Waste Amount 0 Dosing Infusion Rate 125 Cumulative Dose Not Applicable Increase/Decrease Started Elapsed Time Elapsed Time ( 0m minutes) Administered/Completed Medications Discontinued Medications Sodium Chloride (Normal Saline Iv) 1,000 mls @ 999 mls/hr IV CONT .Q1H1M STA Stop: 09/09/25 11:25 Last Infusion: 09/09/25 12:02 Dose: Infused Documented By: Admin: 09/09/25 10:35 Dose: 999 mls/hr Documented By: JACQUE Morphine Sulfate (Morphine Sulfate (*Crx) 4 Mg/Ml Inj) 2 mg IV PUSH ONCE ONE Stop: 09/09/25 10:26 Last Admin: 09/09/25 10:37 Dose: 2 mg Documented By: JACQUE Morphine Sulfate (Morphine Sulfate (*Crx) 4 Mg/Ml Inj) 4 mg IV PUSH ONCE STA Stop: 09/09/25 11:58 Last Admin: 09/09/25 12:07 Dose: 4 mg Documented By: PAOLA Ondansetron HCl (Ondansetron Inj 4 Mg/2 Ml Vial) 4 mg IV PUSH ONCE STA Stop: 09/09/25 10:26 Last Admin: 09/09/25 10:36 Dose: 4 mg Documented By: JACQUE Interventions/Assessments IV / Saline Lock, Insert Start: 09/09/25 09:58 Freq: STAT Status: Active Protocol: Document 09/09/25 10:11 KNW (Rec: 09/09/25 10:12 KNW [id number]) IV Assessment Peripheral Access Right Forearm IV Catheter Access Initiated IV Insertion Date 09/09/25 IV Insertion Time 10:11 Catheter Gauge 20 IV Insertion 1 Attempts Ultrasound Used for No Placement IV Site Assessment WNL IV Care and WNL Maintenance PA: Musculoskeletal Assessment Start: 09/09/25 09:21 Freq: Status: Active Protocol: Document 09/09/25 10:00 KNW (Rec: 09/09/25 10:00 KNW [id number]) Musculoskeletal Assessment Right Back Musculoskeletal Muscle Pain,Muscle Pain With Movement Symptoms Limb Description Normal Range of Motion Full Range of Motion Strength Strong Last Vital Signs Temperature 98.8 F 09/09/25 13:40 Pulse Rate 57 L 09/09/25 13:40 Respiratory Rate 20 09/09/25 13:40 Pulse Oximetry 98 09/09/25 13:40 Blood Pressure 145/90 H 09/09/25 13:40 Blood Pressure Mean 108 09/09/25 13:40 Blood Pressure Position Sitting 09/09/25 13:40 Oxygen Delivery Room Air 09/09/25 09:25 Weight 86 kg 09/09/25 09:59 Last Result - Abnormals Only RBC 4.38 M/mm3 (4.6-6.20) L 09/09/25 10:09 Hgb 13.2 g/dL (14.0-18.0) L 09/09/25 10:09 Hct 40.7 % (42.0-52.0) L 09/09/25 10:09 MPV 11.0 fl (7.4-10.4) H 09/09/25 10:09 Lymph % (Auto) 16.5 % (18.3-44.2) L 09/09/25 10:09 [place] % (Auto) 10.3 % (2.6-8.5) H 09/09/25 10:09 [place] # (Auto) 1.0 K/mm3 (0.1-0.6) H 09/09/25 10:09 Abs Immat Gran (auto) 0.05 K/mm3 (0.00-0.031) H 09/09/25 10:09 Absolute Neuts (auto) 7.0 K/mm3 (1.3-6.7) H 09/09/25 10:09 Creatinine 1.64 mg/dL (0.7-1.3) H 09/09/25 10:59 Estimated GFR 46 (59-) L 09/09/25 10:59 Most Recent Suicide Severity Rating Suicide Severity Rating NO RISK INDICATED 09/09/25 09:59
--- NOTE | 2025-09-09 14:32 | ADMGEN ---
This patient, Von Bowman, was admitted to 2 Medical Room 259-. Patient/family oriented to hospital policies and general routines including ID bracelet, bed and alarms, visiting hours, pain management, procedures, bathroom and other care routines, personal items, smoking policy, room service/diet, and visiting hours. Information on how to activate the Rapid Response Team has been discussed. Patient/Family are encouraged to report perceived risks to care and to ask questions if they do not understand what they are told or what they should do. Admitted from Emergency Room
[2025-09-09] MEDS: LACTATED RINGERS 1,000 ML 30 ML IV CONT (15:31)
--- NOTE | 2025-09-09 15:36 | WPDURCON ---
Assessment and Plan Assessment and plan (1) Right ureteral stone: Code(s): N20.1 - Calculus of ureter Status: Acute (2) Hydroureteronephrosis: Code(s): N13.30 - Unspecified hydronephrosis Status: Acute (3) JOCE (acute kidney injury): Code(s): N17.9 - Acute kidney failure, unspecified Status: Acute Plan This is a very pleasant 45-year-old gentleman with a right 5mm distal stone. He has intractable pain. There is associated right hydroureteronephrosis - options of medical expulsive therapy versus surgical intervention discussed. Given the patient's 2 year presents in continued severe pain will plan to take the patient today for emergent surgical intervention. Plan cystoscopy, right ureteroscopy, laser lithotripsy, retrograde pyelogram, stent placement. - Risks/benefits/ alternatives discussed. Patient understands the risks procedure including wound infection, bleeding, pain, injury to structures, inability to remove stone, need additional surgeries, complication anesthesia patient's present and agreed to proceed with procedure today Urology Consult Note HPI Date Seen: 09/09/25 Requesting Physician: Enmanuel Jacobo MD Primary Care Provider: SENIOR SALES EXECUTIVE PHYSICIAN Consult Narrative Narrative: Von Bowman is a 45 year old male with a history nephrolithiasis. He was found to have a right ureteral stone earlier there is weak on ER visit in [place]. He was seen in the office yesterday with continued pain and then presented to the emergency department today when he feels the pain was intolerable. Patient with no previous stone history. No intervention in the past. [facility] Past Medical History Medical History Kidney stones Social History Social History Smoking packs per day: 0.5 Smoking cigarettes per day: 10.0 Years smoked: 10 Smoking pack-years: 5.00 Smoking status: Former smoker Tobacco type: cigarettes Second hand tobacco smoke exposure: No Smoking end date: 09/24/04 Alcohol intake: current Drinks per week: 2 Substance use: never Substance use type: does not use Lack of Transportation: No Lack of Food: Never True Current Housing: I Have Housing Concerned About Future Housing: No Difficulty Paying Gas/Electric Bills: No Difficulty Paying for Meds: No Currently Unemployed: No Education: Bachelor's Degree Difficulty w/ Childcare or Family Care: No Spiritual care concerns: No Meds Home Medications and Allergies Allergies Allergy/AdvReac Type Severity Reaction Status Date / Time No Known Allergies Allergy Verified 09/09/25 14:33 Vital Signs Vital Signs - 24 hr 09/09/25 09:25 09/09/25 10:12 09/09/25 12:12 Temperature 36.6 C Pulse Rate 58 L 52 L Respiratory Rate 18 14 18 Blood Pressure 142/75 H 125/77 139/78 Pulse Oximetry 100 100 Oxygen Delivery Room Air 09/09/25 13:40 09/09/25 14:59 09/09/25 15:29 Temperature 37.1 C 36.9 C 37.4 C Pulse Rate 57 L 63 64 Respiratory Rate 20 18 Blood Pressure 145/90 H 143/71 H 149/74 H Pulse Oximetry 98 99 97 Oxygen Delivery Room Air Exam Narrative: Patient is awake and alert. He is no acute distress breathing is labored his abdomen is soft nontender nondistended. Results Labs 09/09/25 10:09 09/09/25 10:59 Labs: Short CBC 09/09/25 Range/Units 10:09 WBC 9.9 (4.5-10.0) K/mm3 Hgb 13.2 L (14.0-18.0) g/dL Hct 40.7 L (42.0-52.0) % Plt Count 180 (150-375) k/mm3 BMP 09/09/25 10:59 Sodium 140 Potassium 4.4 Chloride 105 Carbon Dioxide 28 BUN 14 Creatinine 1.64 H Glucose 81 Calcium 8.7 Liver Function 09/09/25 Range/Units 10:59 Total Bilirubin 0.5 (0.2-1.3) mg/dL AST 29 (17-59) U/L ALT 47 (6-50) U/L Alkaline Phosphatase 76 (38-126) U/L Albumin 3.9 (3.5-5.1) g/dL Urine 09/09/25 Range/Units 10:10 Urine Color Yellow (Yellow) Urine Appearance Clear (Clear) Urine pH 7.5 (5.0-9.0) Ur Specific [place] 1.019 (1.001-1.035) Urine Protein Trace (Negative) mg/dL Urine Glucose (UA) Negative (Negative) mg/dL Patient: Von Bowman : 1980 MR#: [id number] Age: 45 Acct:[id number] Loc: [facility] ADM Date: 09/09/[address]: Ordering Physician: Sudha Huff APRN Date of Service: 09/09/25 Procedure(s): CT abdomen pelvis wo con Accession Number(s): [id number] cc: Sudha Huff 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 TECHNIQUE: Stone protocol CT FINDINGS: Moderately severe right-sided hydroureteronephrosis present with 4.5 mm stone in the expected location of the distal right ureter just above the UVJ, image 164 series 3. No other kidney stones or left ureteral stones. 2 mm stone present overlying the anterior bladder wall image 165 series 3, and image 79 of the sagittal series may represent a tiny bladder stone. Tiny urachal remnant also present. Small amount of free fluid. The bowel gas pattern is nonobstructive with no free air or pneumatosis. Moderate to large amount of stool extends to the cecum. No grossly inflamed appendix seen. No AAA. No gross CT evidence of acute cholecystitis or pancreatitis. Para graft lung bases clear. Heart size normal. The bones appear intact. No bulky mesenteric or retroperitoneal lymphadenopathy or masses. Mildly enlarged prostate. IMPRESSION: Directed noncontrast exam demonstrating moderately severe right-sided hydroureteronephrosis with probable 4.5 mm distal right ureteral stone. Small urachal remnant, and possible tiny anterior bladder stone also noted as detailed above.
--- NOTE | 2025-09-09 15:40 | WPDHPUPDATE1 ---
History and Physical Update Update Date/Time: 09/09/25 15:40 History and Physical has been reviewed, including an updated exam of the patient. There are NO changes in the patient's condition. Risks, benefits, and alternatives have been discussed and questions answered. Patient agrees to proceed with procedure.
--- NOTE | 2025-09-09 15:46 | WPDANESEPPF ---
Anes - Initial Pre Proc Eval Procedure: Operation Date: 09/09/25 16:00 Proposed Procedures p Cystoscopy, Right Retrograde Pyelogram, Right Ureteroscopy,Right Stone Extraction, Possible Holmium laser ,Possible Stent Placement - Greg Alvarado MD Date/Time: 09/09/25 15:46 Surgeon: Enmanuel Jacobo MD Pre Op Diagnosis: Kidney Stone/Hydroureteronephrosis Patient Data Age: 45 Gender: M Height: 1.78 m Weight: 86 kg Last Vital Signs Temp 37.4 C 09/09/25 15:29 Pulse 64 09/09/25 15:29 Resp 18 09/09/25 14:59 BP 149/74 H 09/09/25 15:29 Pulse Ox 97 09/09/25 15:29 O2 Del Method Room Air 09/09/25 15:29 Allergies Allergy/AdvReac Type Severity Reaction Status Date / Time No Known Allergies Allergy Verified 09/09/25 14:33 Laboratory Tests 09/09/25 09/09/25 09/09/25 10:09 10:10 10:59 WBC 9.9 K/mm3 (4.5-10.0) RBC 4.38 L M/mm3 (4.6-6.20) Hgb 13.2 L g/dL (14.0-18.0) Hct 40.7 L % (42.0-52.0) MCV 92.9 fl (80-100) MCH 30.1 pg (26-34) MCHC 32.4 g/dl (32-36) RDW 12.1 % (11.5-14.5) Plt Count 180 k/mm3 (150-375) MPV 11.0 H fl (7.4-10.4) Immature Gran % (Auto) 0.5 % (0-0.5) Neut % (Auto) 70.5 % (45.5-73.1) Lymph % (Auto) 16.5 L % (18.3-44.2) [place] % (Auto) 10.3 H % (2.6-8.5) Eos % (Auto) 1.5 % (0-4.4) Baso % (Auto) 0.7 % (0.2-1.2) Lymph # (Auto) 1.63 K/mm3 (0.9-3.2) [place] # (Auto) 1.0 H K/mm3 (0.1-0.6) Eos # (Auto) 0.2 K/mm3 (0-0.3) Baso # (Auto) 0.1 K/mm3 (0.0-0.1) Abs Immat Gran (auto) 0.05 H K/mm3 (0.00-0.031) Absolute Neuts (auto) 7.0 H K/mm3 (1.3-6.7) Absolute Nucleated RBC 0.000 K/mm3 (0.0-0.012) Nucleated RBC % 0.0 % (0.0-0.2) Sodium 140 mmol/L (137-145) Potassium 4.4 mmol/L (3.4-5.0) Chloride 105 mmol/L (98-107) Carbon Dioxide 28 mmol/L (22-30) Anion Gap 7 mmol/L (4-12) BUN 14 mg/dL (9-20) Creatinine 1.64 H mg/dL (0.7-1.3) Estim Creat Clear Calc 54 ml/min Estimated GFR 46 L (59 - ) Glucose 81 mg/dL (65-110) Calcium 8.7 mg/dL (8.4-10.2) Total Bilirubin 0.5 mg/dL (0.2-1.3) AST 29 U/L (17-59) ALT 47 U/L (6-50) Alkaline Phosphatase 76 U/L (38-126) Total Protein 6.7 g/dL (6.3-8.2) Albumin 3.9 g/dL (3.5-5.1) Urine Color Yellow (Yellow) Urine Appearance Clear (Clear) Urine pH 7.5 (5.0-9.0) Ur Specific [place] 1.019 (1.001-1.035) Urine Protein Trace mg/dL (Negative) Urine Glucose (UA) Negative mg/dL (Negative) Urine Ketones Negative mg/dL (Negative) Ur Blood (Man) Negative (Negative) Urine Nitrate Negative (Negative) Urine Bilirubin Negative (Negative) Urine Urobilinogen 1.0 mg/dL (<2.0) Leukocyte Esterase Rfl Negative JOSE/UL (Negative) Urine RBC 0-2 /hpf (0-2) Urine WBC 0-5 /hpf (0-3) Ur Squamous Epith Cells None seen /hpf (Few) Urine Bacteria None seen /hpf Urine Casts 0-2 Patient hx anesthesia problems: none Family hx anesthesia problems: none Results Review: All pre-operative results and documents have been reviewed as part of the pre-operative evaluation. [facility] Past Medical History Medical History Kidney stones Social History Social History Smoking packs per day: 0.5 Smoking cigarettes per day: 10.0 Years smoked: 10 Smoking pack-years: 5.00 Smoking status: Former smoker Tobacco type: cigarettes Second hand tobacco smoke exposure: No Smoking end date: 09/24/04 Alcohol intake: current Drinks per week: 2 Substance use: never Substance use type: does not use Lack of Transportation: No Lack of Food: Never True Current Housing: I Have Housing Concerned About Future Housing: No Difficulty Paying Gas/Electric Bills: No Difficulty Paying for Meds: No Currently Unemployed: No Education: Bachelor's Degree Difficulty w/ Childcare or Family Care: No Spiritual care concerns: No Anes - Eval Final PreProcedure Day of Procedure 09/09/25 15:46 Patient weight: overweight Heart: regular rate and rhythm Lungs: clear to auscultation Airway: Mallampati scale class II Neurological: alert and oriented Last oral intake: >/= 8 hours ASA classification: II Emergent: no Anesthetic plan: proceed Anesthesia type and monitoring: general LMA and standard monitoring Results Review: All pre-operative results and documents have been reviewed as part of the pre-operative evaluation. Informed Consent: The patient's anesthetic plan and its attendant risks and benefits were discussed with the patient/family/POA. Questions were solicited and answers provided to the satisfaction of the patient/family/POA.
[2025-09-09] MEDS: LIDOCAINE 2% GEL UROJET 10 ML PKG MUCOUS MEM (16:04)
--- NOTE | 2025-09-09 16:10 | S_PTH ---
PATIENT: Von Bowman LOC: APR1YBC U#:[id number] AGE/SX: 45/M ROOM: 259 RE09/09/[address]: Enmanuel Jacobo MD : 1980 BED: 01 DIS: 09/10/2025 SPEC #: [id number] RECD: 09/10/25 08:17 STATUS: FRANK REArin #: [id number] BURT: 09/09/25 16:[address]: Greg Alvarado DEPT: [facility] Surgical RECD BY: Elba Torres ENTERED: 09/10/25 08:19 SP TYPE: Surgical OTHR DR: CHRISTINE NickC Enmanuel Jacobo MD BILINGUAL RECEPTIONIST PHYSICIAN Rashi Herrera MD Tissues: A - Stone Procedures: Gross Exam Level 1 Crystalline Analysis
--- NOTE | 2025-09-09 16:21 | W.PM.PROC2 ---
Procedure Note - Detailed Date of Procedure 09/09/25 Pre-op Diagnosis Right ureteral stone, Hydroureteronephrosis Post-op Diagnosis Same Procedure Performed Cystoscopy, right ureteroscopy, laser lithotripsy, stone extraction, stent insertion Surgeon Greg Alvarado MD Anesthesia General Description of Procedure Informed consent was obtained. Patient in the operating. He recovered IV been devised. Induced anesthesia. He was prepped and draped in a sterile fashion. A 22 cystoscope was inserted through the urethra into the bladder. Inspected bladder showed no mucosal abnormalities. Then cannulated the right ureteral orifice with a wire and then dilate with a 10 coaxial dilator. We then advanced a semi rigid ureteral scope in the distal ureter where we encountered the stone approximately 3cm above ear function. There was surrounding inflammation around the stone. We able to manipulate the stone in a way that it could be basketed and then removed in one piece. The stone was then sent the specimen. We then performed retrograde pyelogram that showed moderate hydroureteronephrosis. Given the degree of inflammation of the distal ureter in his hydronephrosis, we elected to place a stent. A 22 F cystoscope was inserted over the wire with a curl in the renal pelvis and curl in the bladder. The bladder was then emptied. Lidocaine Uro jet instilled. Patient was awakened taken recovery room stable condition Plan stent removal in 1 week Urine Output 200 Pathology Yes Complications No immediate complications Condition Stable Disposition PACU
--- NOTE | 2025-09-09 17:45 | PC.NURSE ---
Patient returned to floor via stretcher from recovery. No patient complaints at this time. Family updated and at bedside.
--- NOTE | 2025-09-09 22:30 | P.HP_ITS ---
H&P: HPI History of Present Illness Date/Time: 09/09/25 22:30 Chief Complaint: Flank Pain Narrative: 45 y/o M with PMH of kidney stones presents here with right flank pain. The patient presents here from home on 09/09 (Sun) for further evaluation of right flank pain. He originally developed flank pain last week and was evaluated at [facility] Emergency Department on 09/03 (). He was admitted overnight and discharged the next day after he was told he would pass the 4 mm stone on his own. Seen by Urology at that time and started on Flomax. However the pain has remained severe. He followed up with Urology outpatient yesterday and underwent a KUB, however he has not been informed of these results. Patient has taken Tylenol for his pain, last dose at 6:30 a.m. Was also discharged with Oxycodone, however he has been unable to take this due to side effects - significant nausea/vomiting. He has been straining his urine and has not seen a stone since his discharge from [facility]. He described the flank pain as intermittent, severe, right-sided. No associated fever, chills, body aches. He currently denies flank pain post cystoscopy and is currently overall feeling improved. Does have hematuria post cystoscopy, denies any hematuria prior to arrival. Denies history of CKD or renal dysfunction. Initial VS at presentation: 98? F, HR 58, RR 18, 142/75, and 100% on RA. ED workup showed: No leukocytosis, hemoglobin 13.2, no significant electrolyte derangements, creatinine 1.64 and GFR 46 (no previous available for comparison), UA unremarkable. CT of the abdomen/pelvis showed moderately severe right-sided hydroureteronephrosis with probable 4.5 mm distal right ureteral stone, small urachal remnant and possible tiny anterior bladder stone. Review of Systems Review of Systems: All systems reviewed & are unremarkable except as noted in HPI and below PMFSH Past Medical History Medical History Kidney stones Social History Social History Smoking packs per day: 0.5 Smoking cigarettes per day: 10.0 Years smoked: 10 Smoking pack-years: 5.00 Smoking status: Former smoker Tobacco type: cigarettes Second hand tobacco smoke exposure: No Smoking end date: 09/24/04 Alcohol intake: current Drinks per week: 2 Substance use: never Substance use type: does not use Lack of Transportation: No Lack of Food: Never True Current Housing: I Have Housing Concerned About Future Housing: No Difficulty Paying Gas/Electric Bills: No Difficulty Paying for Meds: No Currently Unemployed: No Education: Bachelor's Degree Difficulty w/ Childcare or Family Care: No Spiritual care concerns: No Meds Home Medications and Allergies Allergies Allergy/AdvReac Type Severity Reaction Status Date / Time No Known Allergies Allergy Verified 09/09/25 14:33 Vital Signs Vital Signs - 24 hr 09/09/25 09:25 09/09/25 10:12 09/09/25 12:12 Temperature 98 F Pulse Rate 58 L 52 L Respiratory Rate 18 14 18 Blood Pressure 142/75 H 125/77 139/78 Pulse Oximetry 100 100 Oxygen Delivery Room Air Exam Const: General: comfortable and no acute distress Other: , male, nontoxic appearance HENMT: Face/Nose/Sinus: Normal nares present Mouth: Yes moist mucous membranes Eyes: General: appearance normal, both eyes and all related structures Sclera: sclerae normal Pupils: Equal, round and reactive pupils present EOM: EOMs intact bilaterally Resp: Effort & Inspection: normal respiratory effort Auscultation: clear to auscultation bilaterally Cardio: Rate: regular rate Rhythm: regular rhythm Other: S1-S2 present without murmur, rub, ectopy GI: Other: Abdomen soft, nondistended, nontender. Normoactive bowel sounds in all quadrants. : Other: Urine red/dark. Skin: General skin exam: normal color and no rashes or lesions noted Wounds: no wounds Neuro: Speech: normal speech Motor exam (neuro): 5/5 motor strength present throughout Sensory Exam: normal sensation Other: A&O x4 Extrem: General: normal to inspection Psych: Mental Status: mental status grossly normal Affect: normal affect Other: Good insight and judgment, very pleasant Results Labs Labs: Short CBC 09/09/25 Range/Units 10:09 WBC 9.9 (4.5-10.0) K/mm3 Hgb 13.2 L (14.0-18.0) g/dL Hct 40.7 L (42.0-52.0) % Plt Count 180 (150-375) k/mm3 BMP 09/09/25 10:59 Sodium 140 Potassium 4.4 Chloride 105 Carbon Dioxide 28 BUN 14 Creatinine 1.64 H Glucose 81 Calcium 8.7 Liver Function 09/09/25 Range/Units 10:59 Total Bilirubin 0.5 (0.2-1.3) mg/dL AST 29 (17-59) U/L ALT 47 (6-50) U/L Alkaline Phosphatase 76 (38-126) U/L Albumin 3.9 (3.5-5.1) g/dL Urine 09/09/25 Range/Units 10:10 Urine Color Yellow (Yellow) Urine Appearance Clear (Clear) Urine pH 7.5 (5.0-9.0) Ur Specific Blue 1.019 (1.001-1.035) Urine Protein Trace (Negative) mg/dL Urine Glucose (UA) Negative (Negative) mg/dL Quality VTE Prophylaxis VTE prophylaxis: mechanical ordered Assessment and Plan Assessment and plan (1) Right ureteral stone: Code(s): N20.1 - Calculus of ureter Status: Acute Assessment and Plan: Initially evaluated at [facility] on 09/03 and admitted x1 day for a 4 mm kidney stone. Placed on Flomax at that time by Urology and told he should pass the stone on his own. Discharged home where he has been straining his urine and has not had any evidence he has passed a stone. Followed up with Urology yesterday and underwent a KUB for which he does not have the results. Returning today due to the severity/continuation of the right flank pain. CT of the abdomen/pelvis done in the emergency department on 09/09 during his initial evaluation which showed moderately severe right-sided hydroureteronephrosis with probable 4.5 mm distal right ureteral stone, small urachal remnant, and possible tiny anterior bladder stone. UA evaluated, no abnormalities noted. No leukocytosis. Vital signs within normal limits and showed no indication of SIRS/Sepsis. - UA evaluated on 09/09 unremarkable. No leukocytosis. Vital signs within normal limits. - CT showed moderately severe hydroureteronephrosis secondary to a 4.5 mm stone in the right distal ureter. Urology has been consulted, plan for cystoscopy and stent placement today (09/09). - creatinine modestly elevated with a decreased GFR, suspected JOCE. See below. - trend WBC and renal function - pain control: Tylenol, [place], morphine. Did not tolerate oral oxycodone outpatient. - IV Fluids: 1L -> 125 mL/hr (2) Hydroureteronephrosis: Code(s): N13.30 - Unspecified hydronephrosis Status: Acute Assessment and Plan: - see above (3) JOCE (acute kidney injury): Code(s): N17.9 - Acute kidney failure, unspecified Status: Acute Assessment and Plan: Patient here for kidney stone and moderately severe hydroureteronephrosis secondary to a right ureteral stone. No previous history of CKD/renal insufficiency. Mild changes and renal function. Creatinine 1.64, BUN normal, and GFR 46 upon admission on 09/09. Likely related to current stone. UA showed no indicators of infection. Plan for stent placement/cystoscopy on 09/09. IV fluids in interim. - IV fluids - monitor renal function Plan Diet: NPO -> regular post cystoscopy DVT Prophylaxis: SCDs IV fluids: 1L -> 125 mL/hr Lines/Tubes: pIV Code Status: Full Code Prior Studies I have reviewed the following patient records and this information was taken into consideration when formulating the assessment and plan.: previous labs, pr evious ER visits, previous hospitalizations and previous clinic visits Time Spent with Patient Time with patient: less than 45 minutes Hospitalist MIPS Advance Care Plan I have confirmed that the patient's Advanced Care Plan is present, code status is documented, or surrogate decision maker is listed in patient medical record.: Yes Medication Reconciliation I have utilized all available resources to obtain, update and review the patien ts current medications (includes all prescriptions, OTC, herbals, cannabis, and nutritional supplements).: Yes
[2025-09-10] MEDS: SODIUM CHLORIDE 0.9% IV 1,000 ML 125 ML IV CONT ×2 (01:54→10:36)
[2025-09-10 04:42] VITALS: BP 114/49; PULSE 50; RESP 18; TEMP 37; O2SAT 95
[2025-09-10 05:27] LABS: Hematocrit 32.8 % (42.0-52.0); Hemoglobin 10.8 g/dL (14.0-18.0); Immature Granulocyte Percent A 0.7 % (0-0.5); Lymphocytes Absolute Auto 1.58 K/mm3 (0.9-3.2); Mean Corpuscular HGB Conc 32.9 g/dl (32-36); Mean Corpuscular Hemoglobin 29.8 pg (26-34); Mean Corpuscular Volume 90.4 fl (80-100); Nucleated Red Blood Cells Absolute Auto 0.000 K/mm3 (0.0-0.012); Nucleated Red Blood Cells Perc 0.0 % (0.0-0.2); Platelet Count Result 165 k/mm3 (150-375); Red Blood Count 3.63 M/mm3 (4.6-6.20); White Blood Count 5.9 K/mm3 (4.5-10.0)
[2025-09-10 05:46] LABS: Anion Gap 4 mmol/L (4-12); Blood Urea Nitrogen 11 mg/dL (9-20); Calcium 8.2 mg/dL (8.4-10.2); Carbon Dioxide 27 mmol/L (22-30); Chloride 106 mmol/L (98-107); Estimated CRCL calculation 61 ml/min; Estimated Glomerular Filt Rate 53; Glucose 87 mg/dL (65-110); Potassium 4.2 mmol/L (3.4-5.0); Sodium 137 mmol/L (137-145)
--- NOTE | 2025-09-10 07:57 | P.PNIM_ITS ---
Assessment and Plan Assessment and Plan (1) Right ureteral stone: Code(s): N20.1 - Calculus of ureter Status: Acute Assessment and Plan: Initially evaluated at [facility] on 09/03 and admitted x1 day for a 4 mm kidney stone. Placed on Flomax at that time by Urology and told he should pass the stone on his own. Discharged home where he has been straining his urine and has not had any evidence he has passed a stone. Followed up with Urology yesterday and underwent a KUB for which he does not have the results. * Returning today due to the severity/continuation of the right flank pain. * CT abdomen/pelvis on 09/09: moderately severe right-sided hydroureteronephrosis with probable 4.5 mm distal right ureteral stone, small urachal remnant, and possible tiny anterior bladder stone. * UA evaluated, no abnormalities noted, no leukocytosis * Vital signs within normal limits and showed no indication of SIRS/Sepsis. * CT showed moderately severe hydroureteronephrosis secondary to a 4.5 mm stone in the right distal ureter. Urology has been consulted, plan for cystoscopy and stent placement today (09/09). * Creatinine elevated with a decreased GFR, suspected JOCE. See below. * trend WBC and renal function * pain control: Tylenol, [place], morphine. Did not tolerate oral oxycodone outpatient. * IV Fluids: 1L -> 125 mL/hr (2) Hydroureteronephrosis: Code(s): N13.30 - Unspecified hydronephrosis Status: Acute Assessment and Plan: - see above (3) JOCE (acute kidney injury): Code(s): N17.9 - Acute kidney failure, unspecified Status: Acute Assessment and Plan: * No previous history of CKD/renal insufficiency * Creatinine 1.64, BUN normal, and GFR 46 upon admission on 09/09. Likely 2/2 current stone * UA showed no indicators of infection * Plan for stent placement/cystoscopy on 09/09 * IV fluids in interim * Admitted for kidney stone + moderately severe hydroureteronephrosis secondary to a right ureteral stone * IV fluids * monitor renal function Plan Diet: NPO -> regular post cystoscopy DVT Prophylaxis: SCDs IV fluids: 1L -> 125 mL/hr Lines/Tubes: pIV Code Status: Full Code Subjective Date/time seen: 12/18/25 07:57 Interval history: 45 y/o M with PMH of kidney stones presents here with right flank pain. 09/10/2025 Review of Systems Review of Systems: All systems reviewed & are unremarkable except as noted in HPI and below Exam Const: General: comfortable and no acute distress Other: , male, nontoxic appearance HENMT: Face/Nose/Sinus: Normal nares present Mouth: Yes moist mucous membranes Eyes: General: appearance normal, both eyes and all related structures Sclera: sclerae normal Pupils: Equal, round and reactive pupils present EOM: EOMs intact bilaterally Resp: Effort & Inspection: normal respiratory effort Auscultation: clear to auscultation bilaterally Cardio: Rate: regular rate Rhythm: regular rhythm Other: S1-S2 present without murmur, rub, ectopy GI: Other: Abdomen soft, nondistended, nontender. Normoactive bowel sounds in all quadrants. : Other: Urine red/dark. Skin: General skin exam: normal color and no rashes or lesions noted Wounds: no wounds Neuro: Cranial nerves: Yes Equal, round and reactive pupils present Speech: normal speech Motor exam (neuro): 5/5 motor strength present throughout Sensory Exam: normal sensation Other: A&O x4 Extrem: General: normal to inspection Psych: Mental Status: mental status grossly normal Affect: normal affect Other: Good insight and judgment, very pleasant Objective Data Vital Signs Vital Signs: Vital Signs - 24 hr 09/09/25 09:25 09/09/25 10:12 09/09/25 12:12 Temperature 98 F Pulse Rate 58 L 52 L Respiratory Rate 18 14 18 Blood Pressure 142/75 H 125/77 139/78 Pulse Oximetry 100 100 Oxygen Delivery Room Air Oxygen Flow Rate 09/09/25 13:40 09/09/25 14:59 09/09/25 15:29 Temperature 98.8 F 98.4 F 99.4 F Pulse Rate 57 L 63 64 Respiratory Rate 20 18 Blood Pressure 145/90 H 143/71 H 149/74 H Pulse Oximetry 98 99 97 Oxygen Delivery Room Air Oxygen Flow Rate 09/09/25 16:23 09/09/25 16:33 09/09/25 16:48 Temperature 97.7 F Pulse Rate 60 52 L 58 L Respiratory Rate 12 15 16 Blood Pressure 125/69 133/82 141/73 H Pulse Oximetry 100 100 100 Oxygen Delivery Simple Face Mask Simple Face Mask Simple Face Mask Oxygen Flow Rate 8 8 8 09/09/25 17:00 09/09/25 17:10 09/09/25 17:15 Temperature 98.2 F Pulse Rate 71 68 70 Respiratory Rate 18 18 16 Blood Pressure 127/71 130/75 142/75 H Pulse Oximetry 100 99 98 Oxygen Delivery Room Air Room Air Room Air Oxygen Flow Rate 09/09/25 17:24 09/09/25 17:50 09/09/25 18:00 Temperature 98.7 F Pulse Rate 62 67 Respiratory Rate 18 18 Blood Pressure 132/83 139/61 Pulse Oximetry 98 97 96 Oxygen Delivery Room Air Room Air Oxygen Flow Rate 09/09/25 18:15 09/09/25 18:45 09/09/25 20:00 Temperature 98.8 F 98.9 F Pulse Rate 68 72 Respiratory Rate 18 17 Blood Pressure 118/57 L 104/43 L Pulse Oximetry 99 96 Oxygen Delivery Room Air Oxygen Flow Rate 09/09/25 20:13 09/10/25 04:42 Temperature 98.9 F 98.6 F Pulse Rate 63 50 L Respiratory Rate 18 18 Blood Pressure 109/50 L 114/49 L Pulse Oximetry 96 95 Oxygen Delivery Oxygen Flow Rate Intake/Output Intake/Output: Intake & Output 09/07/25 09/08/25 09/09/25 09/10/25 23:59 23:59 23:59 23:59 Intake Total 1791.7 1198.3 Output Total 850 2475 Balance 941.7 -1276.7 Meds/Results Medications: Active Medications Generic Name Dose Route Start Last Admin Trade Name Freq PRN Reason Stop Dose Admin Acetaminophen 650 mg 09/09/25 13:52 Acetaminophen 325 Mg Tablet PO Q4H PRN Mild Pain (1-3) or Fever Hydrocodone Bitart/Acetaminophen 1 tab 09/09/25 13:52 Hydrocodone/Acetaminophen (*Crx) 5-325 Mg Tablet PO Q4H PRN Moderate Pain (4-6) Docusate Sodium 100 mg 09/09/25 13:52 Docusate Sodium 100 Mg Capsule PO BID PRN Constipation Sodium Chloride 1,000 mls @ 125 mls/hr 09/09/25 13:15 09/10/25 01:54 Normal Saline Iv IV CONT 125 mls/hr .Q8H ADRIANA Administration Morphine Sulfate 4 mg 09/09/25 13:14 12/17/25 14:22 Morphine Sulfate (*Crx) 4 Mg/Ml Inj IV PUSH 4 mg Q2H PRN Administration Pain Rated 7-10 Ondansetron HCl 4 mg 09/09/25 13:52 Ondansetron Inj 4 Mg/2 Ml Vial IV PUSH Q6H PRN Nausea And Vomiting Radiology Results: ITS Impressions Abdomen/Pelvis CT 09/09/25 11:18 IMPRESSION: Directed noncontrast exam demonstrating moderately severe right- sided hydroureteronephrosis with probable 4.5 mm distal right ureteral stone. Small urachal remnant, and possible tiny anterior bladder stone also noted as detailed above. Retrograde Pyelogram 09/09/25 16:36 IMPRESSION: 1. Fluoroscopy utilized during placement of a right intrarenal stent which is in expected position. Correlate with procedure note for further detail. Labs Labs: Laboratory Results - last 24 hr 09/09/25 09/09/25 09/09/25 10:09 10:10 10:59 WBC 9.9 RBC 4.38 L Hgb 13.2 L Hct 40.7 L MCV 92.9 MCH 30.1 MCHC 32.4 RDW 12.1 Plt Count 180 MPV 11.0 H Immature Gran % (Auto) 0.5 Neut % (Auto) 70.5 Lymph % (Auto) 16.5 L [place] % (Auto) 10.3 H Eos % (Auto) 1.5 Baso % (Auto) 0.7 Lymph # (Auto) 1.63 [place] # (Auto) 1.0 H Eos # (Auto) 0.2 Baso # (Auto) 0.1 Abs Immat Gran (auto) 0.05 H Absolute Neuts (auto) 7.0 H Absolute Nucleated RBC 0.000 Nucleated RBC % 0.0 Sodium 140 Potassium 4.4 Chloride 105 Carbon Dioxide 28 Anion Gap 7 BUN 14 Creatinine 1.64 H Estim Creat Clear Calc 54 Estimated GFR 46 L Glucose 81 Calcium 8.7 Total Bilirubin 0.5 AST 29 ALT 47 Alkaline Phosphatase 76 Total Protein 6.7 Albumin 3.9 Urine Color Yellow Urine Appearance Clear Urine pH 7.5 Ur Specific [place] 1.019 Urine Protein Trace Urine Glucose (UA) Negative Urine Ketones Negative Ur Blood (Man) Negative Urine Nitrate Negative Urine Bilirubin Negative Urine Urobilinogen 1.0 Leukocyte Esterase Rfl Negative Urine RBC 0-2 Urine WBC 0-5 Ur Squamous Epith Cells None seen Urine Bacteria None seen Urine Casts 0-2 09/10/25 04:56 WBC 5.9 RBC 3.63 L Hgb 10.8 L Hct 32.8 L MCV 90.4 MCH 29.8 MCHC 32.9 RDW 12.0 Plt Count 165 MPV 10.5 H Immature Gran % (Auto) 0.7 H Neut % (Auto) 57.7 Lymph % (Auto) 26.7 [place] % (Auto) 11.8 H Eos % (Auto) 2.4 Baso % (Auto) 0.7 Lymph # (Auto) 1.58 [place] # (Auto) 0.7 H Eos # (Auto) 0.1 Baso # (Auto) 0.0 Abs Immat Gran (auto) 0.04 H Absolute Neuts (auto) 3.4 Absolute Nucleated RBC 0.000 Nucleated RBC % 0.0 Sodium 137 Potassium 4.2 Chloride 106 Carbon Dioxide 27 Anion Gap 4 BUN 11 Creatinine 1.45 H Estim Creat Clear Calc 61 Estimated GFR 53 L Glucose 87 Calcium 8.2 L Total Bilirubin AST ALT Alkaline Phosphatase Total Protein Albumin Urine Color Urine Appearance Urine pH Ur Specific [place] Urine Protein Urine Glucose (UA) Urine Ketones Ur Blood (Man) Urine Nitrate Urine Bilirubin Urine Urobilinogen Leukocyte Esterase Rfl Urine RBC Urine WBC Ur Squamous Epith Cells Urine Bacteria Urine Casts Quality VTE Prophylaxis VTE prophylaxis: mechanical ordered
[2025-09-10 08:30] VITALS: PULSE 50; RESP 18; O2SAT 95
--- NOTE | 2025-09-10 12:50 | PC.NURSE ---
Patient's IV infiltrated, ok to remove per Kurt and stop IV fluids as plan is to d/c patient in near future.
[2025-09-10 14:00] VITALS: BP 115/61; PULSE 57; RESP 16; TEMP 36.7; O2SAT 97
--- NOTE | 2025-09-10 14:33 | P.PNAN_ITS ---
Anes - Prog Note Post-Op Date/Time: 09/10/25 14:33 Cardiovascular status: normal Respiratory status: normal Airway patency: baseline Mental status: baseline Vital Signs: Last Vital Signs Temp 36.7 C 09/10/25 14:00 Pulse 57 L 09/10/25 14:00 Resp 16 09/10/25 14:00 BP 115/61 09/10/25 14:00 Pulse Ox 97 09/10/25 14:00 O2 Del Method Room Air 09/10/25 08:30 O2 Flow Rate 8 09/09/25 16:48 Pain Score (VAS): 2 I/O: Intake & Output 09/09/25 09/10/25 09/10/25 23:59 07:59 15:59 Intake Total 600 1198.3 1936.7 Output Total 200 2475 600 Balance 400 -1276.7 1336.7 Laboratory Tests 09/10/25 04:56 09/10/25 04:56 09/10/25 04:56 WBC 5.9 RBC 3.63 L Hgb 10.8 L Hct 32.8 L MCV 90.4 MCH 29.8 MCHC 32.9 RDW 12.0 Plt Count 165 MPV 10.5 H Immature Gran % (Auto) 0.7 H Neut % (Auto) 57.7 Lymph % (Auto) 26.7 [place] % (Auto) 11.8 H Eos % (Auto) 2.4 Baso % (Auto) 0.7 Lymph # (Auto) 1.58 [place] # (Auto) 0.7 H Eos # (Auto) 0.1 Baso # (Auto) 0.0 Abs Immat Gran (auto) 0.04 H Absolute Neuts (auto) 3.4 Absolute Nucleated RBC 0.000 Nucleated RBC % 0.0 Sodium 137 Potassium 4.2 Chloride 106 Carbon Dioxide 27 Anion Gap 4 BUN 11 Creatinine 1.45 H Estim Creat Clear Calc 61 Estimated GFR 53 L Glucose 87 Calcium 8.2 L Patient Feedback: Patient satisfied with anesthetic care.
--- NOTE | 2025-09-10 15:06 | P.PNUR_ITS ---
Progress Note: A&P Assessment and Plan (1) Right ureteral stone: Code(s): N20.1 - Calculus of ureter Status: Acute (2) Hydroureteronephrosis: Code(s): N13.30 - Unspecified hydronephrosis Status: Acute (3) JOCE (acute kidney injury): Code(s): N17.9 - Acute kidney failure, unspecified Status: Acute Plan POD 1 Cystoscopy, right ureteroscopy, laser lithotripsy, stone extraction, stent insertion Surgeon Greg Alvarado MD -Patient doing well post op. Ok to discharge from urology standpoint. -Plan stent removal in 1 week. we have sent message to scheduling. Subjective Subjective Date/Time Seen: 09/10/25 15:06 Interval history: Patient is POD 1 Cystoscopy, right ureteroscopy, laser lithotripsy, stone extraction, stent insertion. He is doing well. We Discussed the stent and what to expect moving forward Until extraction. Patient voiced understanding. Review of Systems Review of Systems: All systems reviewed & are unremarkable except as noted in HPI and below Exam Const: General: comfortable and no acute distress HENMT: Face/Nose/Sinus: Normal nares present Eyes: General: appearance normal, both eyes and all related structures Resp: Effort & Inspection: normal respiratory effort Skin: General skin exam: normal color Neuro: General: gait normal Speech: normal speech Extrem: General: normal to inspection Psych: Mental Status: mental status grossly normal Objective Data Vital Signs Vital Signs: Vital Signs - 24 hr 09/09/25 15:29 09/09/25 16:23 09/09/25 16:33 Temperature 99.4 F 97.7 F Pulse Rate 64 60 52 L Respiratory Rate 12 15 Blood Pressure 149/74 H 125/69 133/82 Pulse Oximetry 97 100 100 Oxygen Delivery Room Air Simple Face Mask Simple Face Mask Oxygen Flow Rate 8 8 09/09/25 16:48 09/09/25 17:00 09/09/25 17:10 Temperature 98.2 F Pulse Rate 58 L 71 68 Respiratory Rate 16 18 18 Blood Pressure 141/73 H 127/71 130/75 Pulse Oximetry 100 100 99 Oxygen Delivery Simple Face Mask Room Air Room Air Oxygen Flow Rate 8 09/09/25 17:15 09/09/25 17:24 09/09/25 17:50 Temperature Pulse Rate 70 62 Respiratory Rate 16 18 Blood Pressure 142/75 H 132/83 Pulse Oximetry 98 98 97 Oxygen Delivery Room Air Room Air Room Air Oxygen Flow Rate 09/09/25 18:00 09/09/25 18:15 09/09/25 18:45 Temperature 98.7 F 98.8 F 98.9 F Pulse Rate 67 68 72 Respiratory Rate 18 18 17 Blood Pressure 139/61 118/57 L 104/43 L Pulse Oximetry 96 99 96 Oxygen Delivery Oxygen Flow Rate 09/09/25 20:00 09/09/25 20:13 09/10/25 04:42 Temperature 98.9 F 98.6 F Pulse Rate 63 50 L Respiratory Rate 18 18 Blood Pressure 109/50 L 114/49 L Pulse Oximetry 96 95 Oxygen Delivery Room Air Oxygen Flow Rate 09/10/25 08:30 09/10/25 14:00 Temperature 98.0 F Pulse Rate 50 L 57 L Respiratory Rate 18 16 Blood Pressure 115/61 Pulse Oximetry 95 97 Oxygen Delivery Room Air Oxygen Flow Rate Intake/Output Intake/Output: Intake & Output 09/07/25 09/08/25 09/09/25 09/10/25 23:59 23:59 23:59 23:59 Intake Total 1791.7 3135.0 Output Total 850 3075 Balance 941.7 60.0 Meds/Results Medications: Active Medications Generic Name Dose Route Start Last Admin Trade Name Freq PRN Reason Stop Dose Admin Acetaminophen 650 mg 09/09/25 13:52 Acetaminophen 325 Mg Tablet PO Q4H PRN Mild Pain (1-3) or Fever Hydrocodone Bitart/Acetaminophen 1 tab 09/09/25 13:52 Hydrocodone/Acetaminophen (*Crx) 5-325 Mg Tablet PO Q4H PRN Moderate Pain (4-6) Docusate Sodium 100 mg 09/09/25 13:52 Docusate Sodium 100 Mg Capsule PO BID PRN Constipation Sodium Chloride 1,000 mls @ 125 mls/hr 09/09/25 13:15 09/10/25 12:20 Normal Saline Iv IV CONT 125 mls/hr .Q8H ADRIANA Infusion Morphine Sulfate 4 mg 09/09/25 13:14 09/09/25 14:22 Morphine Sulfate (*Crx) 4 Mg/Ml Inj IV PUSH 4 mg Q2H PRN Administration Pain Rated 7-10 Ondansetron HCl 4 mg 09/09/25 13:52 Ondansetron Inj 4 Mg/2 Ml Vial IV PUSH Q6H PRN Nausea And Vomiting Radiology Results: ITS Impressions Abdomen/Pelvis CT 09/09/25 11:18 IMPRESSION: Directed noncontrast exam demonstrating moderately severe right- sided hydroureteronephrosis with probable 4.5 mm distal right ureteral stone. S [place] urachal remnant, and possible tiny anterior bladder stone also noted as detailed above. Retrograde Pyelogram 09/09/25 16:36 IMPRESSION: 1. Fluoroscopy utilized during placement of a right intrarenal stent which is in expected position. Correlate with procedure note for further detail. Labs Labs: Laboratory Results - last 24 hr 09/10/25 04:56 WBC 5.9 RBC 3.63 L Hgb 10.8 L Hct 32.8 L MCV 90.4 MCH 29.8 MCHC 32.9 RDW 12.0 Plt Count 165 MPV 10.5 H Immature Gran % (Auto) 0.7 H Neut % (Auto) 57.7 Lymph % (Auto) 26.7 [place] % (Auto) 11.8 H Eos % (Auto) 2.4 Baso % (Auto) 0.7 Lymph # (Auto) 1.58 [place] # (Auto) 0.7 H Eos # (Auto) 0.1 Baso # (Auto) 0.0 Abs Immat Gran (auto) 0.04 H Absolute Neuts (auto) 3.4 Absolute Nucleated RBC 0.000 Nucleated RBC % 0.0 Sodium 137 Potassium 4.2 Chloride 106 Carbon Dioxide 27 Anion Gap 4 BUN 11 Creatinine 1.45 H Estim Creat Clear Calc 61 Estimated GFR 53 L Glucose 87 Calcium 8.2 L
--- NOTE | 2025-09-10 15:37 | PM.DS ---
DS: Admitting Diagnosis Discharge Date 09/10/2025 Admitting Diagnosis Right ureteral stone DS: Discharge Diagnosis Discharge Diagnosis (1) Right ureteral stone: Code(s): N20.1 - Calculus of ureter Status: Acute (2) Hydroureteronephrosis: Code(s): N13.30 - Unspecified hydronephrosis Status: Acute (3) JOCE (acute kidney injury): Code(s): N17.9 - Acute kidney failure, unspecified Status: Acute DS: Summary Hospital Course Reason for hospitalization: Flank Pain Hospital Course: The patient is a 45-year-old male with a history of nephrolithiasis who presented on 09/09/25 with persistent, severe right flank pain despite prior evaluation and medical management for a known ureteral stone. Initial ED evaluation demonstrated stable vital signs, no evidence of infection, and laboratory studies notable for mildly elevated creatinine consistent with acute kidney injury in the setting of obstructive uropathy. CT abdomen/pelvis revealed a probable 4.5 mm distal right ureteral stone with moderately severe right-sided hydroureteronephrosis. Urology was consulted, and the patient was admitted for definitive management. On 09/09/25, he underwent cystoscopy, right ureteroscopy with laser lithotripsy, stone extraction, and right ureteral stent placement under general anesthesia without complications. Postoperatively, he remained hemodynamically stable with adequate urine output, improved pain control, and downtrending creatinine, consistent with improving obstruction-related JOCE. He tolerated diet advancement, required no further IV analgesia, and had no signs of infection or other complications. On postoperative day 1, he was doing well clinically and was deemed stable for discharge from a urology standpoint with plans for outpatient ureteral stent removal in one week and routine follow-up. Time Spent with Patient Time attestation: Total time spent providing and/or coordinating discharge services: Exam Const: Other: , male, nontoxic appearance Cardio: Other: S1-S2 present without murmur, rub, ectopy GI: Other: Abdomen soft, nondistended, nontender. Normoactive bowel sounds in all quadrants. : Other: Urine red/dark. Neuro: Other: A&O x4 Psych: Other: Good insight and judgment, very pleasant DS: Data Data Completed and Pending Pending studies at discharge: Pending at discharge 09/09/25 16:10 Surgical [PTH] Routine Labs on day of discharge: Labs from last 24 hours 09/10/25 04:56 WBC 5.9 RBC 3.63 L Hgb 10.8 L Hct 32.8 L MCV 90.4 MCH 29.8 MCHC 32.9 RDW 12.0 Plt Count 165 MPV 10.5 H Immature Gran % (Auto) 0.7 H Neut % (Auto) 57.7 Lymph % (Auto) 26.7 [place] % (Auto) 11.8 H Eos % (Auto) 2.4 Baso % (Auto) 0.7 Lymph # (Auto) 1.58 [place] # (Auto) 0.7 H Eos # (Auto) 0.1 Baso # (Auto) 0.0 Abs Immat Gran (auto) 0.04 H Absolute Neuts (auto) 3.4 Absolute Nucleated RBC 0.000 Nucleated RBC % 0.0 Sodium 137 Potassium 4.2 Chloride 106 Carbon Dioxide 27 Anion Gap 4 BUN 11 Creatinine 1.45 H Estim Creat Clear Calc 61 Estimated GFR 53 L Glucose 87 Calcium 8.2 L Discharge Plan Discharge Attending physician on discharge: Enmanuel Jacobo Consulting providers: Rashi Herrera; Greg Alvarado; Kurt Rojas Discharging Clinician: Kurt Rojas Anticipated Discharge Date/Time: 09/10/25 15:36 Patient Disposition: Home Activity: as tolerated Diet: regular Discharge Instructions: Discharge disposition: Home Take medications as prescribed Monitor blood pressures Take caution while standing, rising, or moving Change positions slowly taking a break between each position change If you standing feel dizzy sit back down and take a break Encouraged to continue with yearly vaccinations Return to the emergency department if you develop sudden shortness of breath, chest pain, nausea, vomiting, upset stomach or intractable diarrhea Return to the emergency department if you develop fever greater than 101.5 Follow-up with the primary care physician within 1-2 weeks Follow-up with urology in 1 week for stent removal Thank you for choosing [facility] for your healthcare needs Patient Instructions: Antibiotic Form Patient Language: Swedish Stand Alone Forms: General Discharge Information Follow-up/Referrals: Greg Alvarado MD [Physician, Urology] PHYSICIAN,LACING PRESSER [Primary Care Provider, Internal Medicine] Date of admission: 09/09/25 13:14 Primary Care Provider: PHYSICIAN,LACING PRESSER Admitting Provider: Enmanuel Jacobo Attending physician on admission: Enmanuel Jacobo Condition: Stable Quality VTE Prophylaxis VTE prophylaxis: mechanical ordered
== END 2025-09-10 16:00 | disposition home or self-care (01) ==
LOC: ANHED 13:14 → ANH2MED 14:12
PROVIDERS: Student in an Organized Health Care Education/Training Program; Urology; Admitting Provider General Practice; Emergency Provider Registered Nurse; Visit Provider General Practice
PROC: (CPT 52352; principal; 2025-09-09 16:00)
DX: N20.1 Calculus of ureter (principal); N13.30 Unspecified hydronephrosis; N17.9 Acute kidney failure, unspecified; R31.9 Hematuria, unspecified; Z87.891 Personal history of nicotine dependence
CPT/HCPCS: 52332; 52352; 36415; 74176; 74420; 80048; 80053; 81001; 82365; 85025; 88300; 96361; 96374; 96375; 96376; 99285; J0690; C1769; C2617; G0378; J2003; J2250; J2270; J2405; J2704; J3010; J7030; J7120; Q9966